=== PATIENT | female | born 2000 | race Two or more races ===

== ENCOUNTER 2024-08-24 13:38 | Outpatient (CLI) | payer MEDICAID, SELFPAY ==
--- NOTE | 2024-08-24 13:45 | CRLHL7_ITS ---
For Patients: As a result of the Century Cures Act, medical imaging exams and procedure reports are released immediately into your electronic medical record. You may view this report before your referring provider. If you have questions, please contact your health care provider. OBSTETRICAL ULTRASOUND TRANSABDOMINAL, 08/24/2024 CLINICAL INDICATION: Viability. Surgery: No LMP: March 2024 Previous ultrasound: Outside per patient. PRICILA by ultrasound: 03/01/2025 Gestational age: 13 weeks 0 days TECHNIQUE: Real-time hunter-scale imaging of the fetus was performed transabdominal. FINDINGS: CRL: 7.3 cm, 13 weeks 3 days; PRICILA 02/26/2025 heart rate: 155 BPM Gestational sac: 6.3 cm, appears within normal limits Yolk sac: Not visualized Right ovary: Not visualized Left ovary: Within normal limits; 4.4 x 1.8 x 3.0 cm, CL IMPRESSION: Single living intrauterine measuring 13 weeks 3 days with sonographic due date of 02/26/2025. ROD BELLO M.D. Diagnostic Radiologist [email or web address] Transcribed: 5:[address]/Dictated by: Rod Bello MD @ 08/24/2024 5:02:00 PM (Electronically Signed)
--- OUTSIDE RECORDS SUMMARY | 2024-08-24 13:48 | XMS_ITS | Clinical Summary ---
Author Organization [facility] Address [facility] [place] [address] Care Team Providers Care Flumer Name Role Phone None Primary Care Provider Unavailabl e Allergies No known active allergies Medications vit A-vit K-lbqxwy-vvfb- copper (Dsly-Pyoa-Ari l(vit A,C-biotin)) 2,500 unit-100 mg-2,500 mcg cap Take 1 Capsule by mouth once daily. 5 Active fluconazole (Diflucan) 150 mg tabletIndicati ons:Yeast vaginitis ONE BY MOUTH THIS EVENING AND MAY REPEAT IN 5 DAYS IF NEEDED 2 Tablet 5 Active 25/iron fum/folic/dha (-1 ORAL) Take by mouth. Activ e clotrimazole 1% vaginal creamIndicatio ns:Vaginal itching,Vagina l discharge Insert 1 Applicatorful into the vagina at bedtime for 7 days. 45 g 5 025 Active Problems Problem Noted Date Diagnosed Date care, subsequent in first [facility] 07/06/2024 Cervical cancer screening 06/25/2024 Overview (06/25/2024): 05/2024 NIL Plan: HPV-based testing due 05/2027 Severe preeclampsia 04/10/2021 Estimated Date of Delivery Comme nts Yes 03/01/2025 Encounters Date Type Department Care Team Description 08/07/2024 5:19 PM CDT - 08/07/2024 6:35 PM CDT Emergency [facility] [address] [place] [address] Trista Quigley PA Vaginal itching (Primary Dx); Vaginal discharge Discharge Disposition: Home Self Care 08/07/2024 Travel 07/21/2024 Telephone [facility] [address] [place] [address] Tiara Baptiste MD Imaging 07/13/2024 1:32 PM CDT - 07/13/2024 4:27 PM CDT Emergency [facility] [address] [place] [address] Trista Quigley PA Vaginal bleeding in (HC) (Primary Dx); Abdominal cramping; Subchorionic hematoma in first trimester, single or unspecified fetus (HC) Discharge Disposition: Home Self Care 07/13/2024 Travel 07/13/2024 Nurse Triage [facility] Centralized Nurse Triage None Abdominal Pain 07/09/2024 12:04 PM CDT - 07/09/2024 11:59 PM CDT Hospital Encounter [facility] [address] [place] [address] Bleeding in early (HC) 07/09/2024 Telephone [facility] [address] [place] [address] Tiara Baptiste MD Results (LABS /) 07/09/2024 Travel 07/09/2024 Telephone [facility] [address] [place] [address] Tiara Baptiste MD Appointment 07/08/2024 Nurse Triage [facility] [address] [place] [address] Tiara Baptiste MD Vaginal Problem () 07/06/2024 10:30 AM CDT Phone OB Encounter [facility] [address] [place] [address] Education (PRICILA 03/01/25/) 07/06/2024 Travel 07/01/2024 8:00 PM CDT - 07/02/2024 12:15 AM CDT Emergency [facility] [address] [place] [address] Abby Baker DO Fuechtmann, Kayla Renee, PA Shortness of breath (Primary Dx); , unspecified gestational age (HC); Abdominal pain, unspecified abdominal location; Constipation, unspecified constipation type Discharge Disposition: Home Self Care 07/01/2024 7:45 PM CDT Office Visit [facility] [address] [place] [address] Abdominal Pain 07/01/2024 Travel 06/11/2024 Patient Outreach [facility] Care Management - Care Management Navigation/[facility] [place] [address] Adina Gavin-Community Resource Navigation 06/09/2024 9:35 AM CDT Office Visit [facility] [address] [place] [address] Adamaris Gabriel NP Vaginal Discharge (Having discharge since yesterday and having itchiness and burning in the area ) 06/09/2024 Travel 06/09/2024 Nurse Triage [facility] Centralized Nurse Triage None Vaginal Problem from Last 3 Months Immunizations Immunization Administration Dates Next Due DTaP 12/06/2004,12/05/2002 HPV 9 (Gardasil 9) 12/12/2015,04/04/2015, 015 Hepatitis A (Peds) 12/12/2015,01/31/2015 Hepatitis B (Peds) 06/01/2001,04/04/2001, 001 Inactivated Polio Vaccine 08/04/2005,,06/01/2001,04/04,01/31/2001,2000 Influenza, IIV3 (Age >=3 years) 12/21/2020 Influenza, IIV4 12/05/2020,12/29/2019,12/12/2015 Influenza,LAIV4 Live Intrana monisha (Flumist) 01/31/2015 MMR 12/09/2006,2001 Meningococcal Vaccine (Menactra) 01/31/2015 Tdap 01/17/2021,01/31/2015 Varicella Vaccine 04/04/2015,01/31/2015 Family History Medical History Relation Name Comments No Known Problems Daughter Diabetes type II Father Hyperlipidemia Father Hypertension Father Hypertension Mother Relation Name Status Comments Daughter Alive Father Alive Mother Alive Social History Tobacco Use Types Packs/Day Years Used Date Smoking Tobacco: Never Passive Smoke Exposure: Never Smokeless Tobacco: Never Tobacco Cessation:Counseling Given: Not Answered Alcohol Use Standard Drinks/Week Comments Not Currently 0 (1 standard drink = 0.6 oz pur e alcohol) PHQ-2 Answer Date Recorded PHQ-2 TOTAL SCORE 0 07/24/2022 Social Connections Answer Date Recorded Do you often feel lonely or isolated from those around you? 0 06/09/2024 Financial Resource Strain Answer Date R ecorded Difficulty of Paying Living Expenses 2 06/09/2024 Difficulty of Paying Living Expenses 1 06/09/2024 Food Insecurity Answer Date Recorded Do you worry your food will run out before you are able to buy more? 1 06/09/2024 Transportation Needs Answer Date Record ed Does lack of transportation keep you from medica l appointments? 1 06/09/2024 Does lack of transportation keep you from work, meetings or getting things that you need? 1 06/09/2024 Housing Stability Answer Date Recorded What is your housing situation today? 1 06/09/2024 Interpersonal Safety Answer Date Record ed Are you being hit, kicked, p ushed or yelled at (see row info)? No 08/07/2024 Interpersonal Safety Abuse 12 - 18 Not on file 08/07/2024 Interpersonal Safety Ambulatory Vulnerability No t on file 08/07/2024 Utilities Answer Date Recorded Do you have trouble paying f or utilities (for example, heat, electricity, water, phone)? 1 06/09/2024 Estimated Date of Delivery Comme nts Yes 03/01/2025 Sex and Gender Information Value Date Recorded Sex Assigned at Not on file Legal Sex Female 4:02 PM CDT Gender Identity Not on file Sexual Orientation Not on file Obstetrics History Para Term AB IAB SAB Ectopic Multiple Livin g Live Births 2 1 1 0 1 1 Date Outcome GA Total Labor Labor/2nd/3rd Weight Sex Type Anes PTL Alysa A1 A5 Name Clin 2021 Term 39w 6d 0h 02m 0h 02m 3 kg (6 lb 9.8 oz) F C-Sec tion Epidu ral,G enera l Livin g 9 9 BG JAEM LATIF Kristi na Joy, MD Complications:Prolonged late nt phase Delivery Location:Hospital ( [facility] Current Summary Episode Dates Number of Fetuses Estimated Date of Delivery 07/06/2024 - Present (08/24/2024) 1 03/01/2025 (set by Jessica Bullard, RN on 07/06/2024 based on Alternate PRICILA Entry) Dating Summary Based On PRICILA GA Diff Last Menstrual Period on 04/07/2024 (Approximate ) 01/12/2025 +6w6d Alternate PRICILA Entry 03/01/2025 Working Overview and Plan :[place] Delivery Plans Planned delivery method: Vitals Pregravid Weight Height TWG (As of 08/24/2024) Pregrav id BMI 1.6 m (5' 3) Date GA Fund Present FHR Mvmt BP Weight Edema Alb Glu Ket Dil/ Eff/Sta 5 6w3d Inpatient data not displayed here. See encounter summary. 5 7w0d Inpatient data not displayed here. See encounter summary. 5 10w4d Inpatient data not displayed here. See encounter summary. Notes Progress Notes - Phone OB En counter - 07/06/2024 - GA:6w0d 07/06/2024 - 6w0d - Rafa Bullard, RN OB Education. This is her 2 . Her significant other Jitendra is involved. HPI: Currently she is feeling Good, no concerns. Was seen in the ER for SOB, constipation and abdominal pain. Patient was encouraged to start taking colace daily to help with the constipation. Mood:Feels great. counseled, information provided, and discussed Past Medical History: . Date Hx of preeclampsia, prior , currently (HC) Known health problems: none OB History Para Term Living 2 1 1 1 Multiple Live Births 0 1 Patient Active Problem List Diagnosis Code Severe preeclampsia (HC) O14.10 Cervical cancer screening Z12.4 Current Outpatient Rx Medication Sig Dispense Refill fluconazole (Diflucan) 150 mg tablet ONE BY MOUTH THIS EVENING AND MAY REPEAT IN 5 DAYS IF NEEDED 2 Tablet 0 25/iron fum/folic/dha (-1 ORAL) Take by mouth. vit A-vit F-iuiyrp-yhyx-copper (Lzhg-Euzx-Bdlj(vit A,C-biotin)) 2,500 unit-100 mg-2,500 mcg cap Take 1 Capsule by mouth once daily. Medications have been reviewed by me and are current to the best of my knowledge and ability. Discussed about the following topics, patient will receive information at initial OB visit: Nutrition: counseled, information provided, and discussed -Usual weight gain: 25-35 for women starting with normal weight. Current BMI: 36 25 to 29.9: 15-25 lbs 30 or more: 11-20 lbs Physical Activity: counseled, information provided, and discussed Current activity: walking daily. Genetic testing: Would be interested in genetic testing. Calcium intake is adequate. women need 1,200 mg daily. A serving of food rich in calcium has 250 to 350 mg of calcium. (Examples include 8 oz of milk or fortified juice, 6 to 8 oz of yogurt. Three servings of calcium-rich food and your vitamin typically equal 1,200 mg daily. She does not take supplements. Caffeine: counseled, information provided, and discussed Limit caffeine each day to 200 mg. Coffee at coffee shops generally contain more caffeine, so be mindful of that. Sugar substitute:counseled, information provided, and discussed Fish:counseled, information provided, and discussed Eat only cooked fish- Parasites and bacteria in uncooked fish, such as sushi, can cause illness. Avoid smoked fish due to concerns about listeria. Lunch meats:counseled, information provided, and discussed Listeria-type of bacteria found in soil and water. Listeria can be found in raw meats and vegetables, foods that become contaminated after processing and raw or unpasteurized milk. Avoid foods high in calories from sugar and fat. Iron/protein intake Fluids: Drink 8 to 10 glasses of liquids each day. Increase if the weather is hot. Meds, Herbs, Vitamins: counseled, information provided, and discussed Given list of over the counter medication that could be used in at the approval of the OB provider. Was safe medication list sent through [employer] : does not currently have mychart set up. Sent patient a text to help set up her mychart. Sleep: adequate Alcohol/Chemical Use: none She does not smoke, and has not smoked in the past. Quit smoking: none Screened for Domestic Abuse: none Toxoplasmosis Precaution: counseled, information provided, and discussed Exposure to cats: No exposure Avoidance of sauna/hot tubs emphasized. What to expect during visits Bring a list of questions you have for the provider. -Initial Ultrasound between 8-10 weeks -Anatomy ultrasound 18-20 weeks. Frequency of visits: -Monthly until 28 weeks then biweekly until 36 weeks, then weekly until 40 weeks unless problems. -Reviewed Bloodwork to be done at first OB: CBC, Hepatitis B, HIV, RPR, Gonorrhea, Chlamydia, UA, URINE CULTURE, Drug screen, TSH, Blood type. RPR testing also done at 28 weeks and delivery. -RPR at 28 weeks and after delivery. Tdap shot at end of - Need for Rhogam shots based on blood typing done with labwork today. Rhogam shots at 28 weeks and 12 weeks later if still for Rh - mothers. Another Rhogam within 72 hours of delivery if baby Rh positive. Discussed resources available, nurses, OB MD, lacatation safety and health consultant and Babystop class. Advised to check on breastpumps with insurance. Informed patient how to contact the triage nurse or the labor and delivery floor if experiencing any symptoms listed below. Warning signs: vaginal bleeding, fluid leaking from your vagina, severe abdominal pain, nausea/vomiting more than 4-5 times a day or if not able to keep anything down, fever more than 100.4, problems with urination and headache that doesn't go away with tylenol. Questions the patient has: no questions. A/P: OB Education. OB labs and US are ordered. She is not in need of a prescription for vitamins and she has her next OB visit scheduled with Dr. Baptiste on 07/23/24 . 40 minutes spent with patient and greater than 50% was spent on counseling. Jessica Bullard RN .................... 07/06/2024 10:45 AM Last Filed Vital Signs Vital Sign Reading Time Taken Comments Blood Pressure 117/76 08/07/2024 6:33 PM CDT Pulse 87 08/07/2024 6:33 PM CDT Temperature 36.8 C (98.3 F) 08/07/2024 5:00 PM CDT Respiratory Rate 18 08/07/2024 5:00 PM CDT Oxygen Saturation 97% 08/07/2024 6:33 PM CDT Inhaled Oxygen Concentration - - Weight 83 kg (183 lb) 08/07/2024 5:00 PM CDT Height 160 cm (5' 3) 08/07/2024 5:00 PM CDT Body Mass Index 32.42 08/07/2024 5:00 PM CDT Plan of Treatment Upcoming Encounters Date Type Department Care Team (Late st Contact Info) Description 09/01/2024 7:30 AM CDT OB Encounter [facility] [address] [place] [address] Brigitte Andrew MD [address] [place] [address] Health Maintenance Due Date Last Done Comments Depression screening for age 12+ 07/25/2023 07/24/2022, 05/04/2021, 04/10/2021 COVID-19 vaccine series ( season) 2023 02/07/2021, 06/29/2020, 06/01/2020 Influenza Vaccine (Season Ended) 2024 12/21/2020, 12/05/2020, 12/29/2019, Additional history exists RSV vaccine for adults or (1 - Risk 1-dose series) 01/04/2025 BMI (ht and wt on same day) for age 18+ 05/18/2025 05/18/2024, 09/28/2021, 05/04/2021, Additional history exists Chlamydia for age 16-24 08/07/2025 08/08/19 25, 06/09/2024, 07/21/2023, Additional history exists Pap test for age 21-65 06/10/2027 06/09/2024 Tetanus booster 01/17/2031 01/17/2021, 01/31/2015 Hepatitis B series for 19+ Completed 06/01, 04/04/2001, 01/31/2001 HPV series for age 9-26 Completed 12/12/19 16, 04/04/2015, 01/31/2015 HIV for age 15-65 Addressed 08/31/2020 (Ve rified in Care Everywhere or Patient Record) Overridden with the intention of not completing the topic Hepatitis C screening for age 18-79 Addressed 08/31/2020 (Verified in Care Everywhere or Patient Record) Overridden with the intention of not completing the topic (IA) Tdap Completed 01/17/2021, 01/31/2015 Pneumococcal series for age 6-49 Aged Out No longer eligible b ased on patient's age to complete this topic Procedures Procedure Name Priority Date/Time Associated Diagnosis Comments GC CHLAMYDIA TRACH PROBE STAT 08/07/2024 6:31 PM CDT TRICHOMONAS, ADRIANA, AND BACTERIAL VAGINOSIS BY BARRETT STAT 08/07/2024 6:31 PM CDT US OB 1ST TRI SINGLE TA AND TV STAT 07/13/2024 3:28 PM CDT URINE STAT 07/13/2024 3:05 PM CDT UA W/ SEDIMENT EXAM REFLEXED PER CRITERIA STAT 07/13/2024 3:05 PM CDT EXTRA TUBE PEREIRA Today 07/13/2024 2:41 PM CDT CBC WITH AUTO DIFFERENTIAL STAT 07/13/2024 2:41 PM CDT HCG BETA QUANT, STAT 07/13/2024 2:41 PM CDT BASIC METABOLIC PANEL STAT 07/13/2024 2:41 PM CDT CBC WITH AUTO DIFFERENTIAL STAT 07/13/2024 2:41 PM CDT HCG BETA QUANT, STAT 07/09/2024 12:18 PM CDT Bleeding in early (HC) US OB 1ST TRI SINGLE TA AND TV STAT 07/01/2024 10:28 PM CDT INFLUENZA A/B PCR STAT 07/01/2024 8:4 4 PM CDT COVID-19 MOLECULAR Today 07/01/2024 8: 44 PM CDT XR CHEST 2 VIEWS PA AND LATERAL STAT 07/01/2024 8:42 PM CDT LIPASE STAT 07/01/2024 8:34 PM CDT HEPATIC FUNCTION PANEL STAT 07/01/2024 8:34 PM CDT BASIC METABOLIC PANEL STAT 07/01/2024 8:34 PM CDT CBC W PLT NO DIFF STAT 07/01/2024 8:3 4 PM CDT HCG BETA QUANT, STAT 07/01/2024 8:34 PM CDT URINE STAT 07/01/2024 8:12 PM CDT UA W/ SEDIMENT EXAM REFLEXED PER CRITERIA STAT 07/01/2024 8:12 PM CDT MIRROR MAKER THIN PREP PAP SCREEN IMAGED Routine 06/09/2024 1:18 PM CDT Pap smear for cervical cancer screening GC CHLAMYDIA TRACH PROBE Routine 06/09/2024 1:18 PM CDT Vaginal discharge TRICHOMONAS, ADRIANA, AND BACTERIAL VAGINOSIS BY BARRETT Routine 06/09/2024 1:18 PM CDT Vaginal discharge TSH Routine 06/09/2024 11:23 AM CDT Amenorrhea PROLACTIN Routine 06/09/2024 11:23 AM CDT Amenorrhea FSH Routine 06/09/2024 11:23 AM CDT Amenorrhea from Last 3 Months Results * (ABNORMAL) TRICHOMONAS, ADRIANA, AND BACTERIAL VAGINOSIS BY BARRETT (08/07/2024 6:31 PM CDT) Only the most recent of2 resultswithin the time period is included. ADRIANA SPECIES Positive(A) Negative 08/10/19 25 1:47 AM CDT [facility] ADRIANA GLABRATA Negative Negative 08/09/2024 1:47 AM CDT [facility] TRICHOMONAS VVA Negative Negative 5 1:47 AM CDT [facility] BACTERIAL VAGINOSIS Negative Negative 08/09/2024 1:47 AM CDT [facility] Other VAGINAL SWAB / Unknown Non-Blood / Unknown 08/07/2024 6:31 PM CDT 08/07/2024 6:41 PM CDT us Trista VARNER MICROBIOLOGY Final R esult [facility] [address] [place] [address], * GC CHLAMYDIA TRACH PROBE (08/07/2024 6:31 PM CDT) Only the most recent of2 resultswithin the time period is included. CHLAMYDIA PROBE Negative 6:45 PM CDT [facility] N GONORRHOEAE PROBE Negative 08/08/2024 6:45 PM CDT [facility] Other VAGINAL SWAB / Unknown Non-Blood / Unknown 08/07/2024 6:31 PM CDT 08/07/2024 6:41 PM CDT us Trista VARNER MICROBIOLOGY Final R esult [facility] [address] [place] [address], [place] * US OB 1ST TRI SINGLE TA AND TV (07/13/2024 3:28 PM CDT) Only the most recent of2 resultswithin the time period is included. Anatomical Region Laterality Modality Ultrasound 07/13/2024 3:49 PM CDT Impressions 07/13/2024 3:49 PM CDT 1. Single living intrauterine with normal heart rate measuring 130 beats per minute and estimated gestational age of 6 weeks and 5 days with estimated delivery date of 03/03/2025. 2. Suspected small subchorionic hemorrhage measuring approximately 1.6 centimeters in greatest dimension. 3. Trace free fluid, likely physiologic. Dictated by Ignacio Elizondo MD @ 07/13/2024 3:49:50 PM (Electronically Signed) Narrative 07/13/2024 3:49 PM CDT For Patients: As a result of the Cures Act, medical imaging exams and procedure reports are released immediately into your electronic medical record. You may view this report before your referring provider. If you have questions, please contact your health care provider. INDICATION: Abnormal bleeding COMPARISON: Obstetric ultrasound on July 01, 2024 TECHNIQUE: First trimester obstetric ultrasound, transabdominal and transvaginal approach utilizing grayscale and color Doppler FINDINGS: Single living intrauterine with crown-rump length measuring 0.7 centimeters consistent with a 6 week and 5 day gestation. heart rate is normal measuring 130 beats per minute. There is a normal appearing yolk sac. Suspected small perigestational hemorrhage measuring approximately 1.6 centimeters in greatest dimension. The uterus measures 10.7 x 6.7 x 5.6 cm and demonstrates overall normal echogenicity with hypoechoic region in the lower uterine segment, without significant internal flow on color Doppler, incompletely assessed on this exam. The cervix is normal. The right ovary measures 2.2 x 2.5 x 1.5 cm. Physiologic appearance without a dominant cystic lesion or solid ovarian / adnexal mass. The left ovary measures 3.0 x 3.2 x 1.8 cm. Physiologic appearance without a dominant cystic lesion or solid ovarian / adnexal mass. Trace free fluid, likely physiologic. Procedure Note Ignacio Elizondo MD - 07/13/2024 For Patients: As a result of the Cures Act, medical imagingexams and procedure reports are released immediately into your electronicmedical record. You may view this report before your referring provider.If you have questions, please contact your health care provider. INDICATION: Abnormal bleeding COMPARISON: Obstetric ultrasound on July 01, 2024 TECHNIQUE: First trimester obstetric ultrasound, transabdominal and transvaginalapproach utilizing grayscale and color Doppler FINDINGS: Single living intrauterine with crown-rump lengthmeasuring 0.7 centimeters consistent with a 6 week and 5 day gestation. heart rate is normal measuring 130 beats per minute. There is anormal appearing yolk sac. Suspected small perigestational hemorrhage measuring approximately 1.6centimeters in greatest dimension. The uterus measures 10.7 x 6.7 x 5.6 cm and demonstrates overall normalechogenicity with hypoechoic region in the lower uterine segment, withoutsignificant internal flow on color Doppler, incompletely assessed on thisexam. The cervix is normal. The right ovary measures 2.2 x 2.5 x 1.5 cm. Physiologic appearancewithout a dominant cystic lesion or solid ovarian / adnexal mass. The left ovary measures 3.0 x 3.2 x 1.8 cm. Physiologic appearance withouta dominant cystic lesion or solid ovarian / adnexal mass. Trace free fluid, likely physiologic. IMPRESSION: 1. Single living intrauterine with normal heart ratemeasuring 130 beats per minute and estimated gestational age of 6 weeksand 5 days with estimated delivery date of 03/03/2025. 2. Suspected small subchorionic hemorrhage measuring approximately 1.6centimeters in greatest dimension. 3. Trace free fluid, likely physiologic. Dictated by Ignacio Elizondo MD @ 07/13/2024 3:49:50 PM (Electronically Signed) us Trista VARNER US Final R esult * UA W/ SEDIMENT EXAM REFLEXED PER CRITERIA (07/13/2024 3:05 PM CDT) Only the most recent of2 resultswithin the time period is included. COLOR Yellow Yellow Color 07/13/2024 3:24 PM [facility] CLARITY Clear Clear Clarity 07/13/2024 3:24 PM [facility] SPECIFIC GRAVITY,URINE 1.010 1.010, 1.015, 1.020, 1.025 07/13/2024 3:24 PM [facility] PH,URINE 6.0 6.0, 7.0, 8.0, 5.5, 6.5, 7.5, 8.5 07/13/2024 3:24 PM [facility] UROBILINOGEN, QUALITATIVE Normal Normal EU/dl 07/13/2024 3:24 PM [facility] PROTEIN, URINE Negative Negative mg/dL 07/13/2024 3:24 PM [facility] GLUCOSE, URINE Negative Negative mg/dL 07/13/2024 3:24 PM [facility] KETONES,URINE Negative Negative mg/dL 07/13/2024 3:24 PM [facility] BILIRUBIN,URI NE Negative Negative 07/13/2024 3:24 PM [facility] OCCULT BLOOD,URINE Negative Negative 07/13/2024 3:24 PM [facility] NITRITE Negative Negative 07/13/2024 3:24 PM [facility] LEUKOCYTE ESTERASE Negative Negative 07/13/2024 3:24 PM [facility] Urine URINE SPECIMEN / Unknown Non-Blood / Unknown 07/13/2024 3:05 PM CDT 07/13/2024 3:09 PM T us Trista VARNER URINE Final R esult [facility] [address] [place] [address] * (ABNORMAL) URINE (07/13/2024 3:05 PM CDT) Only the most recent of2 resultswithin the time period is included. ,URIN E Positive(P ositive) Negative 07/13/2024 3:25 PM T [facility] Comment:Is Rh typing necessa ry? Urine URINE SPECIMEN / Unknown Non-Blood / Unknown 07/13/2024 3:05 PM CDT 07/13/2024 3:09 PM CDT us Trista Quigley PA URINE Final R esult [facility] [address] [place] [address] * (ABNORMAL) CBC WITH AUTO DIFFERENTIAL (07/13/2024 2:41 PM CDT) Pathologist [facility] WHITE BLOOD COUNT 10.7 4.5 - 11.0 thou/cu mm 07/13/2024 3:03 PM [facility] RED BLOOD COUNT 4.58 4.00 - 5.20 mil/cu mm 07/13/2024 3:03 PM [facility] HEMOGLOBIN 13.4 12.0 - 16.0 g/dL 07/13/2024 3:03 PM [facility] HEMATOCRIT 39.9 33.0 - 51.0 % 07/13/2024 3:03 PM [facility] MCV 87 80 - 100 fL 07/13/2024 3:03 PM [facility] MCH 29.3 26.0 - 34.0 pg 07/13/2024 3:03 PM [facility] MCHC 33.6 32.0 - 36.0 g/dL 07/13/2024 3:03 PM [facility] RDW 13.1 11.5 - 15.5 % 07/13/2024 3:03 PM [facility] PLATELET COUNT 300 140 - 440 thou/cu mm 07/13/2024 3:03 PM [facility] MPV 10.4 6.5 - 11.0 fL 07/13/2024 3:03 PM [facility] [facility] % NEUT 71.3 % 07/13/2024 3:03 PM [facility] % LYMPH 21.0 % 07/13/2024 3:03 PM [facility] % MONO 6.4 % 07/13/2024 3:03 PM [facility] % EOS 1.1 % 07/13/2024 3:03 PM [facility] % BASO 0.2 % 07/13/2024 3:03 PM [facility] ABSOLUTE NEUTROPHILS 7.6(H) 1.7 - 7.0 thou/cu mm 07/13/2024 3:03 PM [facility] ABSOLUTE LYMPHOCYTES 2.3 0.9 - 2.9 thou/cu mm 07/13/2024 3:03 PM [facility] ABSOLUTE MONOCYTES 0.7 <0.9 thou/cu mm 07/13/2024 3:03 PM [facility] ABSOLUTE EOSINOPHILS 0.1 <0.5 thou/cu mm 07/13/2024 3:03 PM [facility] ABSOLUTE BASOPHILS 0.0 <0.3 thou/cu mm 07/13/2024 3:03 PM [facility] Blood BLOOD SPECIMEN / Unknown Venipuncture / Unknown 07/13/2024 2:41 PM CDT 07/13/2024 2:48 PM CDT us Trista VARNER HEMATOLOGY Final R esult [facility] [address] [place] [address] * EXTRA TUBE PEREIRA (07/13/2024 2:41 PM CDT) Blood BLOOD SPECIMEN / Unknown Extra Tube / Unknown 07/13/2024 2:41 PM CDT 07/13/2024 3:13 PM CDT us Doctor Unknown LABORATORY Final Result [facility] [address] [facility] [place] [address] * HCG BETA QUANT, (07/13/2024 2:41 PM CDT) Only the most recent of3 resultswithin the time period is included. HCG BETA QUANT,PREGNANC Y 42,474 mIU/mL 07/13/2024 3:41 PM CDT [facility] Blood BLOOD SPECIMEN / Unknown Venipuncture / Unknown 07/13/2024 2:41 PM CDT 07/13/2024 2:48 PM CDT [facility] LABORATORY - 07/13/2024 3:41 PM CDT Expected Value for Healthy Non- premenopausal women <5.3mIU/mL FOR GESTATIONAL ASSESSMENT-See Range Table Below Weeks of gestation hCG mIU/mL 3 weeks gestation (5.8 - 71.2) 4 weeks gestation (9.5 - 750) 5 weeks gestation (217 - 7138) 6 weeks gestation (158 - 31,795) 7 weeks gestation (3,697 - 163,563) 8 weeks gestation (32,065 - 149,571) 9 weeks gestation (63,803 - 151,410) 10 weeks gestation (46,509 - 186,977) 12 weeks gestation (27,832 - 210,612) 14 weeks gestation (13,950 - 62,530) 15 weeks gestation (12,039 - 70,971) 16 weeks gestation (9,040 - 56,451) 17 weeks gestation (8,175 - 55,868) 18 weeks gestation (8,099 - 58,176) Biotin supplements may cause clinically significant interference for this test assay. If interference is suspected, it is strongly recommended that biotin is discontinued for at least one week prior to retesting. us Trista VARNER CHEMISTRY Final R esult [facility] [address] [facility] [place] [address] * (ABNORMAL) BASIC METABOLIC PANEL (07/13/2024 2:41 PM CDT) Only the most recent of2 resultswithin the time period is included. SODIUM 135(L) 136 - 145 mmol/L 07/13/2024 3:11 PM [facility] POTASSIUM 3.8 3.5 - 5.1 mmol/L 07/13/2024 3:11 PM [facility] CHLORIDE 101 98 - 107 mmol/L 07/13/2024 3:11 PM [facility] CO2,TOTAL 24 22 - 29 mmol/L 07/13/2024 3:11 PM [facility] ANION GAP 10 5 - 18 07/13/2024 3:11 PM [facility] GLUCOSE 74 70 - 99 mg/dL 07/13/2024 3:11 PM [facility] CALCIUM 8.8 8.8 - 10.4 mg/dL 07/13/2024 3:11 PM [facility] Comment: Reference ranges for this test were updated on 12/30/2023 to reflect our healthy population more accurately. Reference range changes are not retroactively applied to results, but previous results using the same methodology can be interpreted in the context of the new reference range. BUN 5(L) 6 - 20 mg/dL 07/13/2024 3:11 PM [facility] CREATININE 0.51 0.50 - 0.90 mg/dL 07/13/2024 3:11 PM [facility] BUN/CREAT RATIO 10 10 - 20 3:11 PM [facility] eGFR >90 >90 mL/min/1. 73m2 07/13/2024 3:11 PM [facility] Comment:As of 2021, eG FR is calculated by the CKD-EPI creatinine equation without race adjustment. eGFR can be influenced by muscle mass, exercise, and diet. The reported eGFR is an estimation only and is only applicable if the renal function is stable. Blood BLOOD SPECIMEN / Unknown Venipuncture / Unknown 07/13/2024 2:41 PM CDT 07/13/2024 2:49 PM CDT Trista VARNER CHEMISTRY Final R esult Performing Organization Address City/[facility]/ZIP Co de Phone Number [facility] [address] [place] [address] * COVID-19 MOLECULAR (07/01/2024 8:44 PM CDT) [facility] COVID 19 [place] MOLECULAR Not detected Not detected 07/01/2024 9:12 PM CDT [facility] TESTING LABORATORY [facility] 07/01/2024 9:12 PM CDT [facility] Comment:Specimen submitted t o [facility] for testing. Other SPECIMEN FROM NASOPHARYNGEAL STRUCTURE / Unknown Non-Blood / Unknown 07/01/2024 8:44 PM CDT 07/01/2024 8:48 PM CDT Abby Moyer DO MICROBIOLOGY Final Result Performing Organization Address City/[facility]/ZIP Co de Phone Number [facility] [address] [place] [address] * INFLUENZA A/B PCR (07/01/2024 8:44 PM CDT) [facility] INFLUENZA A PCR NOT Detected 07/01/2024 9:12 PM CDT [facility] INFLUENZA B PCR NOT Detected 07/01/2024 9:12 PM CDT [facility] Other SPECIMEN FROM NASOPHARYNGEAL STRUCTURE / Unknown Non-Blood / Unknown 07/01/2024 8:44 PM CDT 07/01/2024 8:48 PM CDT Abby Falkutsteven DO MICROBIOLOGY Final Result Performing Organization Address [facility]/ZIP Co de Phone Number [facility] [address] [place] [address] * XR CHEST 2 VIEWS PA AND LATERAL (07/01/2024 8:42 PM CDT) Anatomical Region Laterality Modality CHEST, THORAX, Lung, HEART Digit al Radiography 07/01/2024 9:02 PM CDT Impressions 07/01/2024 9:02 PM CDT 1. No acute cardiopulmonary disease is seen. Dictated by: Nikhil Jimenes MD @ 07/01/2024 21:02:50 (Electronically Signed) Narrative 07/01/2024 9:02 PM CDT For Patients: As a result of the Cures Act, medical imaging exams and procedure reports are released immediately into your electronic medical record. You may view this report before your referring provider. If you have questions, please contact your health care provider. INDICATION: Shortness of breath TECHNIQUE: Chest radiograph 2 views COMPARISON: 12/31/2022 FINDINGS: The sensitivity and specificity of the exam are moderately limited by the patient`s body habitus. Mediastinum: The mediastinum is normal in appearance. The heart silhouette is normal in size and morphology. Lung: Both lungs are unremarkable in appearance. No sign of pleural effusion seen. No pneumothorax is identified. Bone and Soft tissue: Unremarkable for age. Procedure Note Nikhil Jimenes MD - 07/01/2024 For Patients: As a result of the Cures Act, medical imagingexams and procedure reports are released immediately into your electronicmedical record. You may view this report before your referring provider.If you have questions, please contact your health care provider. INDICATION: Shortness of breath TECHNIQUE: Chest radiograph 2 views COMPARISON: 12/31/2022 FINDINGS: The sensitivity and specificity of the exam are moderatelylimited by the patient`s body habitus. Mediastinum: The mediastinum is normal in appearance. The heart silhouetteis normal in size and morphology. Lung: Both lungs are unremarkable in appearance. No sign of pleuraleffusion seen. No pneumothorax is identified. Bone and Soft tissue: Unremarkable for age. IMPRESSION: 1. No acute cardiopulmonary disease is seen. Dictated by: Nikhil Jimenes MD @ 07/01/2024 21:02:50 (Electronically Signed) Abby Clarke Plutsteven DO GENERAL IMAGI NG Final Result * (ABNORMAL) CBC W PLT NO DIFF (07/01/2024 8:34 PM CDT) WHITE BLOOD COUNT 11.6(H) 4.5 - 11.0 thou/cu mm 07/01/2024 8:41 PM CDT [facility] RED BLOOD COUNT 4.27 4.00 - 5.20 mil/cu mm 07/01/2024 8:41 PM CDT [facility] HEMOGLOBIN 12.3 12.0 - 16.0 g/dL 07/01/2024 8:41 PM CDT [facility] HEMATOCRIT 37.2 33.0 - 51.0 % 07/01/2024 8:41 PM T [facility] MCV 87 80 - 100 fL 07/01/2024 8:41 PM CDT [facility] MCH 28.8 26.0 - 34.0 pg 07/01/2024 8:41 PM T [facility] MCHC 33.1 32.0 - 36.0 g/dL 07/01/2024 8:41 PM T [facility] RDW 13.4 11.5 - 15.5 % 07/01/2024 8:41 PM T [facility] PLATELET COUNT 297 140 - 440 thou/cu mm 07/01/2024 8:41 PM T [facility] MPV 9.9 6.5 - 11.0 fL 07/01/2024 8:41 PM T [facility] Blood BLOOD SPECIMEN / Unknown Venipuncture / Unknown 07/01/2024 8:34 PM CDT 07/01/2024 8:38 PM CDT us Abby Falkutt DO HEMATOLOGY Final Result [facility] [address] [place] [address] * LIPASE (07/01/2024 8:34 PM CDT) LIPASE 19.9 13.0 - 60.0 IU/L 07/01/2024 9:02 PM CDT [facility] Blood BLOOD SPECIMEN / Unknown Venipuncture / Unknown 07/01/2024 8:34 PM CDT 07/01/2024 8:38 PM CDT Abby Clarke Plutt DO CHEMISTRY Final Result [facility] [address] [place] [address] * (ABNORMAL) HEPATIC FUNCTION PANEL (07/01/2024 8:34 PM CDT) ALBUMIN 4.2 4.0 - 4.9 g/dL 07/01/2024 9:02 PM [facility] PROTEIN,TOTAL 6.7 6.0 - 8.0 g/dL 07/01/2024 9:02 PM [facility] BILIRUBIN,TOTAL 0.2 0.0 - 1.2 mg/dL 07/01/2024 9:02 PM [facility] BILIRUBIN,DIRECT 0.1 0.0 - 0.2 mg/dL 07/01/2024 9:02 PM [facility] BILIRUBIN,INDIRE CT 0.1(L) 0.2 - 0.8 mg/dL 07/01/2024 9:02 PM [facility] ALK PHOSPHATASE 73 35 - 104 IU/L 07/01/2024 9:02 PM [facility] ALT (SGPT) 16 10 - 35 IU/L 07/01/2024 9:02 PM [facility] AST (SGOT) 18 10 - 35 IU/L 07/01/2024 9:02 PM [facility] Blood BLOOD SPECIMEN / Unknown Venipuncture / Unknown 07/01/2024 8:34 PM CDT 07/01/2024 8:38 PM CDT Abby Clarke Plutt DO CHEMISTRY Final Result Performing Organization Address City/[facility]/ZIP Co de Phone Number [facility] [address] [place] [address] * MIR[employer] THIN PREP PAP SCREEN IMAGED (06/09/2024 1:18 PM CDT) Case Report Gynecologic Cytology Report Case: [id number] Authorizing Provider: Adamaris Gabriel NP Collected: 06/09/2024 1318 [facility] Received: 06/09/2024 1318 Clinic First Screen: [place] Stahl Specimen: MIR[employer]OR [employer] ThinPrep Vial Screening, Cervical 06/25/2024 10:45 AM CDT [facility] INTERPRETATION/ RESULT NEGATIVE FOR INTRAEPITHELIAL LESION OR MALIGNANCY (NIL) (none) 06/25/2024 10:45 AM CDT [facility] at 1045 CDT ORGANISM(S) Fungal organisms morphologically consistent with Adriana species 06/25/2024 10:45 AM CDT [facility] SPECIMEN ADEQUACY Satisfactory for evaluation Endocervical component present 06/25/2024 10:45 AM CDT [facility] Date of LMP 06/01/2024 06/25/2024 10:45 AM CDT [facility] Last Pap Date none 06/25/2024 10:45 AM CDT [facility] Last Pap Result First Pap/Unknown 10:45 AM CDT [facility] Abnormal Pap or [place] Bx in last 5 years No 06/25/2024 10:45 AM CDT [facility] Menstrual Status Regular Periods 06/25/2024 10:45 AM CDT [facility] [place] Bx Done Today No 06/25/2024 10:45 AM CDT [facility] Additional Information None given 06/25/2024 10:45 AM CDT [facility] Comment: Cytology is screened at [facility], Central Laboratory - [address], [place] [address] and [facility] - [address] [place] [address] [address] [facility] - [address] [place] [address] Interpreted at [facility], Central Laboratory - [address] [facility] [address] [facility] [address], [place] [address] Automated Review Successful 06/25/2024 10:45 AM CDT [facility] Comment:Specimen processed s uccessfully by automated mica patcher device, ThinPrep Imaging System, [employer] Note The pap test is a screening technique, not a diagnostic procedure. It is used primarily to screen for squamous cancers and precursor lesions. Published studies have shown that it is subject to both false negative and false positive results. The pap test should not be used as the sole means to diagnose or exclude pre-malignant and malignant lesions. 06/25/2024 10:45 AM CDT [facility]- ENTRCT LABORATORY Other (Cervical) Non-Blood / Unknown 06/09/2024 1:18 PM CDT 06/09/2024 1:18 PM CDT Adamaris Garbiel NP PATHOLOGY/CYTOLOGY Final Result [facility] [address] [place] [address], [place] * TSH (06/09/2024 11:23 AM CDT) TSH 1.20 mIU/L [facility] Dominic Comment: Reference Range > or = 20 Years 0.40-4.50 Ranges First trimester 0.26-2.66 Second trimester 0.55-2.73 Third trimester 0.43-2.91 Blood BLOOD SPECIMEN / Unknown 06/09/2024 11:23 AM CDT 06/09/2024 11:24 AM CDT Narrative [facility] - 06/10/2024 6:23 AM CDT FASTING:YES FASTING: YES Adamaris Gabriel NP CHEMISTRY Final Result [facility] [address] [address], [place] [phone] [facility] [address] [place] [address] * PROLACTIN (06/09/2024 11:23 AM CDT) PROLACTIN 8.5 ng/mL [facility] Comment: Reference Range Females Non- 3.0-30.0 10.0-209.0 Postmenopausal 2.0-20.0 Blood BLOOD SPECIMEN / Unknown 06/09/2024 11:23 AM CDT 06/09/2024 11:24 AM CDT Narrative [facility] - 06/10/2024 6:23 AM CDT FASTING:YES FASTING: YES us Adamaris Gabriel RESIDENTIAL CHILD CARE COUNSELOR SEND OUTS Final Result Performing Organization Address City/[facility]/ZIP Co de Phone Number [employer] [address] [address], [facility] [address] [place] [address] * FSH (06/09/2024 11:23 AM CDT) Pathologist [facility] FSH 6.0 mIU/mL [facility] Comment: Reference Range Follicular Phase 2.5-10.2 Mid-cycle Peak 3.1-17.7 Luteal Phase 1.5- 9.1 Postmenopausal 23.0-116.3 Blood BLOOD SPECIMEN / Unknown 06/09/2024 11:23 AM CDT 06/09/2024 11:24 AM CDT Narrative [facility] - 06/10/2024 6:23 AM CDT FASTING:YES FASTING: YES us Adamaris Gabriel NP CHEMISTRY Final Result [employer] [facility] [address] [place] [address], [facility] [address] [place] [address] from Last 3 Months Insurance MEDICAID [place] CARE Advance Directives * Full Code (Latest Code Status on File) Date Activated Date Inactivated Comments 04/02/2021 12:56 PM 04/06/2021 5:52 PM Question Answer Comments Code Status Discussion: Reviewed Preferences * Full Code Date Activated Date Inactivated Comments 04/02/2021 12:56 PM 04/02/2021 12:56 PM Question Answer Comments Code Status Discussion: Reviewed Preferences Care Teams Flumer Relationship Specialty Start Date End Date None . PCP - General 06/08/23
--- OUTSIDE RECORDS SUMMARY | 2024-08-25 00:47 | XMS_ITS | Clinical Summary ---
Author Organization [employer] [facility] Address [facility] [place] [address] Care Team Providers Care Ferry Terminal Supervisor Name Role Phone None Primary Care Provider Unavailabl e Allergies No known active allergies Medications vit A-vit R-ekpwdy-nxoi- copper (Kwxf-Jjsh-Ssp l(vit A,C-biotin)) 2,500 unit-100 mg-2,500 mcg cap [...] Date Diagnosed Date care, subsequent in first [facility] 07/06/2024 Cervical cancer screening 06/25/2024 Overview (06/25/2024): 05/2024 NIL Plan: HPV-based testing due 05/2027 Severe preeclampsia 04/10/2021 Estimated Date of Delivery Comme nts Yes 03/01/2025 Encounters Date Type Department Care Team Description 08/07/2024 5:19 PM CDT - 08/07/2024 6:35 PM CDT Emergency [facility] [address] [place] [address] Trista Quigley PA Vaginal itching (Primary Dx); Vaginal discharge Discharge Disposition: Home Self Care 08/07/2024 Travel 07/21/[address] [facility] [address] [place] [address] Tiara Baptiste MD Imaging 07/13/2024 1:32 PM CDT - 07/13/2024 4:27 PM CDT Emergency [facility] [address] [place] [address] Trista Quigley PA Vaginal bleeding in (HC) (Primary Dx); Abdominal cramping; Subchorionic hematoma in first trimester, single or unspecified fetus (HC) Discharge Disposition: Home Self Care 07/13/2024 Travel 07/13/2024 Nurse Triage [facility] Centralized Nurse Triage None Abdominal Pain 07/09/2024 12:04 PM CDT - 07/09/2024 11:59 PM CDT Hospital Encounter [facility] [address] [place] [address] Bleeding in early (HC) 07/09/[address] [facility] [address] [place] [address] Tiara Baptiste MD Results (LABS /) 07/09/2024 Travel 07/09/[address] [facility] [address] [place] [address] Tiara Baptiste MD Appointment 07/08/[address] [facility] [address] [place] [address] Tiara Baptiste MD Vaginal Problem () 07/06/2024 10:30 AM CDT Phone OB Encounter [facility] [address] [place] [address] Education (PRICILA 03/01/25/) 07/06/2024 Travel 07/01/2024 8:00 PM CDT - 07/02/2024 12:15 AM CDT Emergency [facility] [address] [place] [address] Abby Baker DO Fuechtmann, Kayla Renee, PA Shortness of breath (Primary Dx); , unspecified gestational age (HC); Abdominal pain, unspecified abdominal location; Constipation, unspecified constipation type Discharge Disposition: Home Self Care 07/01/2024 7:45 PM CDT Office Visit [facility] [address] [place] [address] Abdominal Pain 07/01/2024 Travel 06/11/2024 Patient Outreach [facility] Care Management - Care Management Navigation/[facility] [place] [address] Adina Gavin-Community Resource Navigation 06/09/2024 9:35 AM CDT Office Visit [facility] [address] [place] [address] Adamaris Gabriel NP Vaginal Discharge (Having discharge since yesterday and having itchiness and burning in the area ) 06/09/2024 Travel 06/09/2024 Nurse Triage [facility] Centralized Nurse Triage None Vaginal Problem from [...] enera l Livin g 9 9 BG JAME LATIF Kristi na Joy, MD Complications:Prolonged late nt phase Delivery Location:Hospital ( [facility] Current Summary Episode Dates Number of Fetuses Estimated Date of Delivery 07/06/2024 - Present (08/25/2024) 1 03/01/2025 (set by Jessica Bullard, RN on 07/06/2024 based on Alternate PRICILA Entry) Dating Summary Based On PRICILA GA Diff Last Menstrual Period on 04/07/2024 (Approximate ) 01/12/2025 +6w6d Alternate PRICILA Entry 03/01/2025 Working Overview and Plan :[place]roz[place] Delivery Plans Planned delivery method: Vitals Pregravid Weight Height TWG (As of 08/25/2024) Pregrav id BMI 1.6 m (5' 3) [...] (-1 ORAL) Take by mouth. vit A-vit Q-pgenhu-daff-copper (Yith-Abqz-Epna(vit A,C-biotin)) 2,500 unit-100 mg-2,500 mcg cap Take [...] provider. Was safe medication list sent through [employer] : does not currently have mychart set [...] Discussed resources available, nurses, OB MD, lacatation data quality consultant and Babystop class. Advised to check [...] Description 09/01/2024 7:30 AM CDT OB Encounter [facility] [address] [place] [address] Brigitte Andrew MD [address] [place] [address] Health Maintenance Due Date Last Done Comments Depression screening for age 12+ 07/25/2023 07/24/2022, 05/04/2021, 04/10/2021 COVID-19 vaccine series ( season) 2023 02/07/2021, 06/29/2020, 06/01/2020 Influenza Vaccine (#1) 2024 , 12/05/2020, 12/29/2019, Additional history exists RSV vaccine [...] the intention of not completing the topic Pneumococcal series for age 6-49 Aged Out [...] PER CRITERIA STAT 07/01/2024 8:12 PM CDT RESORT KEEPER THIN PREP PAP SCREEN IMAGED Routine 06/09/2024 [...] is included. ADRIANA SPECIES Positive(A) Negative 08/10/19 1:47 AM CDT [facility] ADRIANA GLABRATA Negative Negative 08/09/2024 1:47 AM CDT [facility] TRICHOMONAS VVA Negative Negative 1:47 AM CDT [facility] BACTERIAL VAGINOSIS Negative Negative 08/09/2024 1:47 AM CDT [facility] Other VAGINAL SWAB / Unknown Non-Blood / Unknown 08/07/2024 6:31 PM CDT 08/07/2024 6:41 PM CDT us Trista VARNER MICROBIOLOGY Final R esult [facility] [address] [place] [address], * GC CHLAMYDIA TRACH PROBE (08/07/2024 6:31 [...] us Trista VARNER MICROBIOLOGY Final R esult [facility]-CEN[facility]AL LABORATORY [address] [place] [address], [place] * US OB 1ST TRI SINGLE [...] COLOR Yellow Yellow Color 07/13/2024 3:24 PM T [facility] CLARITY Clear Clear Clarity 07/13/2024 3:24 PM T [facility] SPECIFIC GRAVITY,URINE 1.010 1.010, 1.015, 1.020, 1.025 07/13/2024 3:24 PM [facility] PH,URINE 6.0 6.0, 7.0, 8.0, 5.5, 6.5, 7.5, 8.5 07/13/2024 3:24 PM [facility] UROBILINOGEN, QUALITATIVE Normal Normal EU/dl 07/13/2024 3:24 PM [facility] PROTEIN, URINE Negative Negative mg/dL 07/13/2024 3:24 PM [facility] GLUCOSE, URINE Negative Negative mg/dL 07/13/2024 3:24 PM [facility] KETONES,URINE Negative Negative mg/dL 07/13/2024 3:24 PM [facility] BILIRUBIN,URI NE Negative Negative 07/13/2024 3:24 PM [facility] OCCULT BLOOD,URINE Negative Negative 07/13/2024 3:24 PM [facility] NITRITE Negative Negative 07/13/2024 3:24 PM [facility] LEUKOCYTE ESTERASE Negative Negative 07/13/2024 3:24 PM [facility] Urine URINE SPECIMEN / Unknown Non-Blood / Unknown 07/13/2024 3:05 PM CDT 07/13/2024 3:09 PM CDT us Trista Quigley PA URINE Final R esult [facility] [address] [place] [address] * (ABNORMAL) URINE (07/13/2024 3:05 PM CDT) Only the most recent of2 resultswithin the time period is included. Pathologist [facility] ,URIN E Positive(P ositive) Negative 07/13/2024 3:25 PM [facility] Comment:Is Rh typing necessa ry? Urine URINE SPECIMEN / Unknown Non-Blood / Unknown 07/13/2024 3:05 PM CDT 07/13/2024 3:09 PM CDT us Trista Quigley PA URINE Final R esult [facility] [address] [place] [address] * (ABNORMAL) CBC WITH AUTO DIFFERENTIAL (07/13/2024 2:41 PM CDT) [facility] WHITE BLOOD COUNT 10.7 4.5 - 11.0 thou/cu mm 07/13/2024 3:03 PM [facility] RED BLOOD COUNT 4.58 4.00 - 5.20 mil/cu mm 07/13/2024 3:03 PM [facility] HEMOGLOBIN 13.4 12.0 - 16.0 g/dL 07/13/2024 3:03 PM [facility] HEMATOCRIT 39.9 33.0 - 51.0 % 07/13/2024 3:03 PM [facility] MCV 87 80 - 100 fL 07/13/2024 3:03 PM [facility] MCH 29.3 26.0 - 34.0 pg 07/13/2024 3:03 PM [facility] MCHC 33.6 32.0 - 36.0 g/dL 07/13/2024 3:03 PM [facility] RDW 13.1 11.5 - 15.5 % 07/13/2024 3:03 PM [facility] PLATELET COUNT 300 140 - 440 thou/cu mm 07/13/2024 3:03 PM [facility] MPV 10.4 6.5 - 11.0 fL 07/13/2024 3:03 PM [facility] % NEUT 71.3 % 07/13/2024 3:03 PM T [facility] % LYMPH 21.0 % 07/13/2024 3:03 PM [facility] % MONO 6.4 % 07/13/2024 3:03 PM [facility] % EOS 1.1 % 07/13/2024 3:03 PM [facility] % BASO 0.2 % 07/13/2024 3:03 PM [facility] ABSOLUTE NEUTROPHILS 7.6(H) 1.7 - 7.0 thou/cu mm 07/13/2024 3:03 PM [facility] ABSOLUTE LYMPHOCYTES 2.3 0.9 - 2.9 thou/cu mm 07/13/2024 3:03 PM [facility] ABSOLUTE MONOCYTES 0.7 <0.9 thou/cu mm 07/13/2024 3:03 PM [facility] ABSOLUTE EOSINOPHILS 0.1 <0.5 thou/cu mm 07/13/2024 3:03 PM [facility] ABSOLUTE BASOPHILS 0.0 <0.3 thou/cu mm 07/13/2024 3:03 PM [facility] Blood BLOOD SPECIMEN / Unknown Venipuncture / Unknown 07/13/2024 2:41 PM CDT 07/13/2024 2:48 PM CDT us Trista Quigley PA HEMATOLOGY Final R esult [facility] [address] [place] [address] * EXTRA TUBE PEREIRA (07/13/2024 2:41 PM CDT) Blood BLOOD SPECIMEN / Unknown Extra Tube / Unknown 07/13/2024 2:41 PM CDT 07/13/2024 3:13 PM CDT us Doctor Unknown LABORATORY Final Result [facility] [address] [place] [address] * HCG BETA QUANT, (07/13/2024 2:41 PM CDT) Only the most recent of3 resultswithin the time period is included. HCG BETA QUANT,PREGNANC Y 42,474 mIU/mL 07/13/2024 3:41 PM CDT [facility] Blood BLOOD SPECIMEN / Unknown Venipuncture / Unknown 07/13/2024 2:41 PM CDT 07/13/2024 2:48 PM CDT [facility] LAB[facility] - 07/13/2024 3:41 PM CDT Expected [...] us Trista VARNER CHEMISTRY Final R esult [facility] [address] [place] [address] * (ABNORMAL) BASIC METABOLIC PANEL (07/13/2024 2:41 PM CDT) Only the most recent of2 resultswithin the time period is included. SODIUM 135(L) 136 - 145 mmol/L 07/13/2024 3:11 PM [facility] POTASSIUM 3.8 3.5 - 5.1 mmol/L 07/13/2024 3:11 PM [facility] CHLORIDE 101 98 - 107 mmol/L 07/13/2024 3:11 PM [facility] CO2,TOTAL 24 22 - 29 mmol/L 07/13/2024 3:11 PM [facility] ANION GAP 10 5 - 18 07/13/2024 3:11 PM [facility] GLUCOSE 74 70 - 99 mg/dL 07/13/2024 3:11 PM [facility] CALCIUM 8.8 8.8 - 10.4 mg/dL 07/13/2024 3:11 PM [facility] Comment: Reference ranges for this test were updated on 12/30/2023 to reflect our healthy population more accurately. Reference range changes are not retroactively applied to results, but previous results using the same methodology can be interpreted in the context of the new reference range. BUN 5(L) 6 - 20 mg/dL 07/13/2024 3:11 PM [facility] CREATININE 0.51 0.50 - 0.90 mg/dL 07/13/2024 3:11 PM [facility] BUN/CREAT RATIO 10 10 - 20 3:11 PM [facility] eGFR >90 >90 mL/min/1. 73m2 07/13/2024 3:11 PM [facility] Comment:As of 2021, eG FR [...] CHEMISTRY Final R esult Performing Organization Address [facility]/ZIP Co de Phone Number [facility] [address] [place] [address] * COVID-19 MOLECULAR (07/01/2024 8:44 PM CDT) [facility] COVID 19 [place] MOLECULAR Not detected Not detected 07/01/2024 9:12 PM CDT [facility] TESTING LABORATORY [facility] Laboratory 07/01/2024 9:12 PM CDT [facility] Comment:Specimen submitted t o [facility] Laboratory for testing. Other SPECIMEN FROM NASOPHARYNGEAL STRUCTURE / Unknown Non-Blood / Unknown 07/01/2024 8:44 PM CDT 07/01/2024 8:48 PM CDT Abby Falkutt DO MICROBIOLOGY Final Result Performing Organization Address [facility]/ZIP Co de Phone Number [facility] [address] [place] [address] * INFLUENZA A/B PCR (07/01/2024 8:44 PM CDT) [facility] INFLUENZA A PCR NOT Detected 07/01/2024 9:12 PM CDT [facility] INFLUENZA B PCR NOT Detected 07/01/2024 9:12 PM CDT [facility] Other SPECIMEN FROM NASOPHARYNGEAL STRUCTURE / Unknown Non-Blood / Unknown 07/01/2024 8:44 PM CDT 07/01/2024 8:48 PM CDT Abby Falkutt DO MICROBIOLOGY Final Result Performing Organization Address [facility] [[email or web address]] Co de Phone Number [facility] [address] [place] [address] * XR CHEST 2 VIEWS PA AND [...] @ 07/01/2024 21:02:50 (Electronically Signed) Abby Clarke Plutt DO GENERAL IMAGI NG Final Result * (ABNORMAL) CBC W PLT NO DIFF (07/01/2024 8:34 PM CDT) WHITE BLOOD COUNT 11.6(H) 4.5 - 11.0 thou/cu mm 07/01/2024 8:41 PM T [facility] RED BLOOD COUNT 4.27 4.00 - 5.20 mil/cu mm 07/01/2024 8:41 PM T [facility] HEMOGLOBIN 12.3 12.0 - 16.0 g/dL 07/01/2024 8:41 PM [facility] HEMATOCRIT 37.2 33.0 - 51.0 % 07/01/2024 8:41 PM [facility] MCV 87 80 - 100 fL 07/01/2024 8:41 PM [facility] MCH 28.8 26.0 - 34.0 pg 07/01/2024 8:41 PM [facility] MCHC 33.1 32.0 - 36.0 g/dL 07/01/2024 8:41 PM [facility] RDW 13.4 11.5 - 15.5 % 07/01/2024 8:41 PM [facility] PLATELET COUNT 297 140 - 440 thou/cu mm 07/01/2024 8:41 PM [facility] MPV 9.9 6.5 - 11.0 fL 07/01/2024 8:41 PM [facility] Blood BLOOD SPECIMEN / Unknown Venipuncture / Unknown 07/01/2024 8:34 PM CDT 07/01/2024 8:38 PM CDT us Abby Clarke Plutt DO HEMATOLOGY Final Result [facility] [address] [place] [address] * LIPASE (07/01/2024 8:34 PM CDT) LIPASE 19.9 13.0 - 60.0 IU/L 07/01/2024 9:02 PM T [facility] Blood BLOOD SPECIMEN / Unknown Venipuncture / Unknown 07/01/2024 8:34 PM CDT 07/01/2024 8:38 PM CDT Abby Clarke Plutt DO CHEMISTRY Final Result [facility] [address] [place] [address] * (ABNORMAL) HEPATIC FUNCTION PANEL (07/01/2024 8:34 PM CDT) Pathologist [facility] ALBUMIN 4.2 4.0 - 4.9 g/dL 07/01/2024 9:02 PM T [facility] PROTEIN,TOTAL 6.7 6.0 - 8.0 g/dL 07/01/2024 9:02 PM T [facility] BILIRUBIN,TOTAL 0.2 0.0 - 1.2 mg/dL 07/01/2024 9:02 PM [facility] BILIRUBIN,DIRECT 0.1 0.0 - 0.2 mg/dL 07/01/2024 9:02 PM [facility] BILIRUBIN,INDIRE CT 0.1(L) 0.2 - 0.8 mg/dL 07/01/2024 9:02 PM [facility] ALK PHOSPHATASE 73 35 - 104 IU/L 07/01/2024 9:02 PM [facility] ALT (SGPT) 16 10 - 35 IU/L 07/01/2024 9:02 PM T [facility] AST (SGOT) 18 10 - 35 IU/L 07/01/2024 9:02 PM [facility] Blood BLOOD SPECIMEN / Unknown Venipuncture / Unknown 07/01/2024 8:34 PM CDT 07/01/2024 8:38 PM CDT Abby Clarke Plutt DO CHEMISTRY Final Result [facility] [address] [place] [address] * RESORT KEEPER THIN PREP PAP SCREEN IMAGED (06/09/2024 1:18 PM CDT) Case Report Gynecologic Cytology Report Case: [id number] Authorizing Provider: Adamaris Gabriel NP Collected: 06/09/2024 1318 Ordering Location: [facility] Received: 06/09/2024 1318 Clinic First Screen: [place] Stahl Specimen: RESORT KEEPER ThinPrep Vial Screening, Cervical 06/25/2024 10:[address] [facility] INTERPRETATION/ RESULT NEGATIVE FOR INTRAEPITHELIAL LESION OR MALIGNANCY (NIL) (none) 06/25/2024 10:[address] [facility] [employer] [facility] ENTRAL LABORATORY at 1045 CDT ORGANISM(S) Fungal organisms morphologically consistent with Adriana species 06/25/2024 10:[address] [facility] [employer] [facility] ENTRAL LABORATORY SPECIMEN ADEQUACY Satisfactory for evaluation Endocervical component present 06/25/2024 10:[address] [facility] Date of LMP 06/01/2024 06/25/2024 10:[address] [facility] [employer] [employer] LABORAT[facility]-C ENTRAL LABORATORY Last Pap Date none 06/25/2024 10:45 AM CDT [facility] LABORATORY-C ENTRAL LABORATORY Last Pap Result First Pap/Unknown 10:45 AM CDT [facility] [employer] [facility] ENTRAL LABORATORY Abnormal Pap or [place] Bx in last 5 years No 06/25/2024 10:[address] [facility] [employer] [facility] ENTRAL LABORATORY Menstrual Status Regular Periods 06/25/2024 10:[address] [facility] [place] Bx Done Today No 06/25/2024 10:45 AM CDT [facility] [employer] [facility] ENTRAL LABORATORY Additional Information None given 06/25/2024 10:45 AM CDT [facility] [employer] [facility] ENTRAL LABORATORY Comment: [facility], Central Laboratory - [address], [place] [address] and [facility] Laboratory - [address], [place] [address] and [facility] - [address] [place] [address] Interpreted at [facility], Central Laboratory - [address], [place] [address] Automated Review Successful 06/25/2024 10:45 AM CDT [facility] Comment:Specimen processed s uccessfully by automated camera machinist device, ThinPrep Imaging System, [employer] Note The pap test is a [...] and malignant lesions. 06/25/2024 10:45 AM CDT [facility] Other (Cervical) Non-Blood / Unknown 06/09/2024 1:18 PM CDT 06/09/2024 1:18 PM CDT Adamaris Gabriel NP PATHOLOGY/CYTOLOGY Final Result [facility] [address] [place] [address], [place] * TSH (06/09/2024 11:23 AM CDT) TSH 1.20 mIU/L [facility] melissa Alfaro Comment: Reference Range > or = 20 Years 0.40-4.50 Ranges First trimester 0.26-2.66 Second trimester 0.55-2.73 Third trimester 0.43-2.91 Blood BLOOD SPECIMEN / Unknown 06/09/2024 11:23 AM CDT 06/09/2024 11:24 AM CDT Narrative [facility] - 06/10/2024 6:23 AM CDT FASTING:YES FASTING: YES us Adamaris Gabriel NP CHEMISTRY Final Result [employer] [address] [place] [address], [facility] [address] [place] [address] * PROLACTIN (06/09/2024 11:23 AM CDT) PROLACTIN 8.5 ng/mL [facility] Comment: Reference Range Females Non- 3.0-30.0 10.0-209.0 Postmenopausal 2.0-20.0 Blood BLOOD SPECIMEN / Unknown 06/09/2024 11:23 AM CDT 06/09/2024 11:24 AM CDT Narrative [facility] - 06/10/2024 6:23 AM CDT FASTING:YES FASTING: YES us Adamaris Gabriel ENVIRONMENTAL AID SEND OUTS Final Result Performing Organization Address [facility] [[email or web address]] Co de Phone Number [employer] [address] [facility] [place] [address], [place] [phone] [facility] [address] [place] [address] * FSH (06/09/2024 11:23 AM CDT) FSH 6.0 mIU/mL [facility] arikmelissa Alfaro Comment: Reference Range Follicular Phase 2.5-10.2 Mid-cycle Peak 3.1-17.7 Luteal Phase 1.5- 9.1 Postmenopausal 23.0-116.3 Blood BLOOD SPECIMEN / Unknown 06/09/2024 11:23 AM CDT 06/09/2024 11:24 AM CDT Narrative [facility] - 06/10/2024 6:23 AM CDT FASTING:YES FASTING: YES us Adamaris Gabriel NP CHEMISTRY Final Result [employer] [address] [place] [address], [place] [phone] [facility] [address] [facility] [address] from Last 3 Months Insurance MEDICAID [place] CARE Advance Directives * Full Code (Latest Code Status on File) Date Activated Date Inactivated Comments 04/02/2021 12:56 PM 04/06/2021 5:52 PM Question Answer Comments Code Status Discussion: Reviewed Preferences * Full Code Date Activated Date Inactivated Comments 04/02/2021 12:56 PM 04/02/2021 12:56 PM Question Answer Comments Code Status Discussion: Reviewed Preferences Care Teams Ferry Terminal Supervisor Relationship Specialty Start Date End Date None . PCP - General 06/08/23
== END 2024-08-24 13:39 | disposition home or self-care (01) ==
LOC: US 13:40
PROVIDERS: Visit Provider Physician Assistant
DX: Z34.91 Encounter for supervision of normal pregnancy, unspecified, first trimester (principal); Z3A.13 13 weeks gestation of pregnancy
CPT/HCPCS: 76801; 82565; 82570; 83021; 84156; 84450; 84460; 84520; 86592; 86703; 86704; 86706; 86762; 86787; 86803; 86850; 86900; 86901; 87086; 87340; 87491; 87591; T1013

== ENCOUNTER 2024-10-18 11:58 | Outpatient (CLI) | payer MEDICAID, SELFPAY ==
--- NOTE | 2024-10-18 12:15 | CRLHL7_ITS ---
For Patients: As a result of the 21st Century Cures Act, medical imaging exams and procedure reports are released immediately into your electronic medical record. You may view this report before your referring provider. If you have questions, please contact your health care provider. PRICILA by US: 03/03/2025. GA: 20w, 4d. Single. INDICATION: anatomy screen. CERVIX: Visualized. Measurement: 3.7 TA. POSITIONING: Vertex. AMNIOTIC FLUID: 4.1 cm SDP. PLACENTA: Technique: Transabdominal. PLACENTA POSITION: Anterior. Placenta tip to internal os: 10.0 cm. Placental insertion: Central. UMBILICAL CORD: 3-vessel cord. DOPPLER: heart rate: 154 bpm. BIOMETRY: BPD: 4.8 cm. 20w, 3d, 43.0 percent. HC: 17.6 cm. 20w, 1d, 21.4 percent. AC: 15.7 cm. 20w, 6d, 54.2 percent. FL: 3.1 cm. 19w, 5d, 16.3 percent. FL/AC: 19.9 percent. HC/AC Ratio: 1.1. EFW: 347.5 g. Weight: 0 lbs, 12 oz. age by this US: 20w, 4d. PRICILA by this US: 03/03/2025. Percentile by PRICILA: 32.6 percent. SURVEY: Observed Structures Cerebellum: Yes. 2.16 cm; 21w 5d. Cisterna Magna: Yes. 4.2 mm. Nuchal Fold: Yes. 5.8 mm. Lateral Ventricle: Yes. 7.7 mm. CSP: Yes. Midline Falx: Yes. Choroid Plexus: Yes. Spine: Yes. Stomach: Yes. Abd Cord Insertion: Yes. Urinary Bladder: Yes. Kidneys: Yes. Diaphragm: No. Nose/lips: Yes. Orbital view: Yes. Profile: No. Upper Extremities: Yes. Lower Extremities: Yes. Hands: Yes. Feet: Yes. Four-Chamber Heart: No. LVOT: Yes. RVOT: No. 3VV: Yes. 3VTV: No. IMPRESSION: 1. Concordance of clinical and sonographic dating. 2. Incomplete visualization of the profile, diaphragm and heart images due to position. Remainder of the anatomic survey is normal. Short-term follow-up recommended. Rod Gil M.D. Diagnostic Radiologist [email or web address] [email or web address] / bM/Dictated by: Rod Gil MD @ 10/18/2024 1:28:00 PM (Electronically Signed)
== END 2024-10-18 11:59 | disposition home or self-care (01) ==
LOC: US 11:58
PROVIDERS: Visit Provider Obstetrics & Gynecology
DX: Z34.92 Encounter for supervision of normal pregnancy, unspecified, second trimester (principal); Z3A.20 20 weeks gestation of pregnancy
CPT/HCPCS: 76805; T1013

== ENCOUNTER 2024-11-18 10:14 | Outpatient (CLI) | payer MEDICAID, SELFPAY ==
--- NOTE | 2024-11-18 10:15 | CRLHL7_ITS ---
For Patients: As a result of the Century Cures Act, medical imaging exams and procedure reports are released immediately into your electronic medical record. You may view this report before your referring provider. If you have questions, please contact your health care provider. OB ULTRASOUND PRICILA by LMP or US: 03/03/2025. GA: 25 w, 0 d. INDICATION: Follow-up anatomy. TECHNIQUE: Real time grayscale imaging of the fetus was performed. Evaluate anatomy. Transabdominal imaging performed. CERVIX: Not visualized. POSITIONING: Vertex. AMNIOTIC FLUID: 5.8 cm SDP (N: greater than 2 x 1 cm) PLACENTA: Technique: Transabdominal. PLACENTA POSITION: Anterior. DOPPLER: heart rate: 135 bpm. IMPRESSION: Normal diaphragm, profile, four-chamber heart, LVOT, RVOT, three-vessel trachea view, and three-vessel view. Rod Gil M.D. Diagnostic Radiologist [email or web address] SANDRA/timothy aguirre/Dictated by: Rod Gil MD @ 11/18/2024 1:12:00 PM (Electronically Signed)
== END 2024-11-18 10:15 | disposition home or self-care (01) ==
LOC: US 10:15
PROVIDERS: Visit Provider Obstetrics & Gynecology
DX: Z34.92 Encounter for supervision of normal pregnancy, unspecified, second trimester (principal); Z3A.25 25 weeks gestation of pregnancy
CPT/HCPCS: 76816; 87086; 87186; T1013

== ENCOUNTER 2024-12-09 08:20 | Outpatient (CLI) | payer MEDICAID, SELFPAY | END 2024-12-09 08:21 | disposition home or self-care (01) | LOC: NFLDREF 08:21 | PROVIDERS: Visit Provider Obstetrics & Gynecology | DX: Z34.93 Encounter for supervision of normal pregnancy, unspecified, third trimester (principal) | CPT/HCPCS: 86592; 87086 ==

== ENCOUNTER 2025-01-06 12:38 | Outpatient (CLI) | payer MEDICAID, SELFPAY ==
--- NOTE | 2025-01-06 13:00 | CRLHL7_ITS ---
For Patients: As a result of the Century Cures Act, medical imaging exams and procedure reports are released immediately into your electronic medical record. You may view this report before your referring provider. If you have questions, please contact your health care provider. INDICATION: E66.9 - Obesity, unspecified. (Sic) COMPARISON: 11/18/2024 TECHNIQUE: Grayscale pelvic ultrasound via a transabdominal approach. FINDINGS: number: 1 Position: Cephalic. Placental Position: Anterior. Amniotic fluid: DVP 5.8cm. heart rate: 152bpm. BPD: 7.9cm; 31 weeks and 5 days. Percentile:32% HC: 30.2cm; 33 weeks and 4 days. Percentile:55% AC: 29.7cm; 33 weeks and 5 days. Percentile:90% FL: 6.1cm; 31 weeks and 5 days. Percentile:31% US EGA: 32 weeks and 5. US PRICILA: 02/26/2025 Established PRICILA: 03/03/2025 EFW: 2083gm, +/-312gm, corresponding to the 70th percentile for the established PRICILA. Uterus: No significant uterine findings. Right ovary: Unseen. Left ovary: Unseen. IMPRESSION: measurements correspond to an EFW at the 70th percentile for the established PRICILA. Dictated by Gianni Romero MD @ 01/07/2025 10:41:26 AM (Electronically Signed)
== END 2025-01-06 12:39 | disposition home or self-care (01) ==
LOC: US 12:38
PROVIDERS: Visit Provider Obstetrics & Gynecology
DX: O99.213 Obesity complicating pregnancy, third trimester (principal); Z3A.32 32 weeks gestation of pregnancy
CPT/HCPCS: 76816

== ENCOUNTER 2025-02-10 09:00 | Outpatient (CLI) | payer MEDICAID, SELFPAY ==
--- NOTE | 2025-02-10 09:15 | CRLHL7_ITS ---
For Patients: As a result of the Cures Act, medical imaging exams and procedure reports are released immediately into your electronic medical record. You may view this report before your referring provider. If you have questions, please contact your health care provider. OB ULTRASOUND PRICILA by US: 03/03/2025. GA: 37 w, 0 d. Single. INDICATION: Obesity complicating . TECHNIQUE: Real time grayscale imaging of the fetus was performed. Transabdominal. CERVIX: Not visualized. POSITIONING: Vertex. AMNIOTIC FLUID: 4.6 cm. SDP (N: greater than 2 x 1 cm) BIOPHYSICAL PROFILE: 2: Gross body movements 2: tone 2: Respiratory activity 2: Amniotic fluid SDP (N: greater than 2 x 1 cm) 8/8: Total score PLACENTA: Technique: Transabdominal. PLACENTA POSITION: Anterior. DOPPLER: heart rate: 139 bpm. IMPRESSION: Normal biophysical profile score 8/8. Rod Gil M.D. Diagnostic Radiologist [email or web address] SANDRA/timothy aguirre/Dictated by: Rod Gil MD @ 02/10/2025 10:18:00 AM (Electronically Signed)
== END 2025-02-10 09:01 | disposition home or self-care (01) ==
LOC: US 09:00
PROVIDERS: Visit Provider Obstetrics & Gynecology
DX: O99.213 Obesity complicating pregnancy, third trimester (principal); E66.9 Obesity, unspecified; Z3A.37 37 weeks gestation of pregnancy
CPT/HCPCS: 76819

== ENCOUNTER 2025-02-14 13:23 | Outpatient (CLI) | payer MEDICAID, SELFPAY ==
[2025-02-14 13:31] VITALS: BP 111/64; PULSE 88; RESP 17; TEMP 36.9
--- NOTE | 2025-02-14 15:09 | PC.OBNST ---
NST Note NST Note Start: 02/14/25 13:27 Freq: ONCE Status: Active Protocol: Document 02/14/25 15:05 KST (Rec: 02/14/25 15:08 KST [id number]) NST Note 2 Para (# of births) 1 EDC 03/03/25 Gestational Age In 37 Weeks & 4 Days Weeks & Days Patient Presented Other with Complaint(s) of Other Complaints patient states she lost her mucous plug and wonders if she is in labor Reactive Yes Appropriate for Yes Gestational Age JOAQUÍN Ellison, RN Date 02/14/25 Reactive Yes Appropriate for Yes Gestational Age JOAQUÍN Thompson, RN Date 02/14/25 OB NST charge Yes Complete NST Note Yes via Write Note The provider's electronic signature indicates the NST is reactive/appropriate for gestational age. *Note to provider: If an addendum is required, open the patient's chart and click on the note under the Nurse/Allied Health tab.
== END 2025-02-14 14:30 | disposition home or self-care (01) ==
LOC: OB OUT 13:23 → OB 13:24
PROVIDERS: Visit Provider Obstetrics & Gynecology
DX: O47.1 False labor at or after 37 completed weeks of gestation (principal); Z3A.37 37 weeks gestation of pregnancy
CPT/HCPCS: 59025; G0463

== ENCOUNTER 2025-02-16 08:24 | Outpatient (CLI) | payer MEDICAID, SELFPAY ==
--- NOTE | 2025-02-16 08:00 | CRLHL7_ITS ---
For Patients: As a result of the Century Cures Act, medical imaging exams and procedure reports are released immediately into your electronic medical record. You may view this report before your referring provider. If you have questions, please contact your health care provider. OB ULTRASOUND BIOPHYSICAL PROFILE PRICILA by US: 03/03/2025. GA: 37 w, 6 d. Single. Comparison: 02/10.2024 images. INDICATION: Obesity. TECHNIQUE: Real time hunter scale imaging of the fetus was performed. Transabdominal imaging performed. CERVIX: Not visualized. POSITIONING: Vertex. AMNIOTIC FLUID: 4.0 cm. ROBBIN, SDP (N: greater than 2 x 1 cm) BIOPHYSICAL PROFILE: Gross body movements: 2. tone: 2. Respiratory activity: 2. Amniotic fluid: 2. Total score: 8/8. IMPRESSION: Normal biophysical profile 8/8. ROD BELLO M.D. Diagnostic Radiologist [email or web address] DW/Dictated by: Rod Bello MD @ 02/20/2025 1:10:00 PM (Electronically Signed)
== END 2025-02-16 08:25 | disposition home or self-care (01) ==
LOC: US 08:24
PROVIDERS: Visit Provider Obstetrics & Gynecology
DX: O14.13 Severe pre-eclampsia, third trimester (principal); O99.213 Obesity complicating pregnancy, third trimester; Z3A.37 37 weeks gestation of pregnancy
CPT/HCPCS: 76819

== ENCOUNTER 2025-02-16 13:27 | Inpatient (IN) | payer MEDICAID, SELFPAY ==
[2025-02-16] VITALS (34 sets, daily range): BP systolic 101–150; BP diastolic 65–96; PULSE 63–94; RESP 16–18; TEMP 36.3–36.9; O2SAT 93–100; BMI 36.4
[2025-02-16 10:35] LABS: Hematocrit* 35.9 % (33.0-51.0); Hemoglobin* 11.9 gm/dL (12.0-16.0); Mean Corpuscular HGB Conc 33 gm/dL (32-36); Mean Corpuscular Hemoglobin 27 pg (26-34); Mean Corpuscular Volume 82 fL (80-100); Red Blood Count* 4.38 m/uL (4.00-5.20); White Blood Count* 8.09 K/uL (4.50-11.00)
[2025-02-16 10:46] LABS: Slide Review Reflex No
[2025-02-16 10:51] LABS: Alanine Aminotransferase* 16 U/L (4-35); Aspartate Amino Transferase* 28 U/L (12-35); Blood Urea Nitrogen* 6 mg/dL (5-24); Creatinine* 0.5 mg/dL (0.5-1.5); Est. Creatinine Clearance* 124.62; Estimated Glomerular Filt Rate 134 ml/min
[2025-02-16] MEDS: ACETAMINOPHEN 500 MG TABLET 1000 MG PO (10:53)
[2025-02-16 11:03] LABS: Protein Creatinine Ratio Urine 0.10 (0-0.19)
[2025-02-16] MEDS: PROCHLORPERAZINE 10 MG TABLET PO (11:51)
[2025-02-16] MEDS: LACTATED RINGERS 1000 ML 1,000 ML 1200 ML IV ×2 (13:15→14:40)
--- NOTE | 2025-02-16 13:33 | P.OBHP_ITS ---
OB - H&P: HPI History of Present Illness Chief complaint: maternity Narrative: Angelica Huertas is a 24 year old female transferred from clinic for new blood pressure elevation. is complicated by history of preeclampsia with severe features, history of delivery, GBS positivity, obesity, undesired fertility. Patient reported a new headache x3 days and had mild range blood pressures in the clinic. She was transferred to the Center. Here, she has had persistent mild range blood pressure by 4 hours. She continues to endorse a bitemporal constant headache, rated as 5/10 in severity despite Tylenol and Compazine. Denies vision changes, but notes her eyes feel fatigued. No right upper quadrant pain. Denies regular/painful contractions, vaginal bleeding or leaking of fluid. Endorses active movement. NST has been entirely reactive/reassuring across extended monitoring in triage. Admission labs reveal hemoglobin of 11.9, platelets 261, creatinine 0.5, AST 28 and ALT of 16. UPCR of 0.1. Specific Issues/Plans Patient goes by Raine (Mon-say). Partner: [] . Iranian-speaking Daughter: Tila Baby: Girl! H&P: Ct on 02/10 # history of preeclampsia with severe features based on blood pressure criteria per patient, records requested Baseline pre E labs: All normal Aspirin 81 mg # history of . IOL at 40w. Was remote from delivery 24 hours into induction, elected for primary , double-layer closure, operative report is scanned # Unwanted fertility Desires Iranian TOLAC given to the patient to review on 10/18/24 Chance of successful : 51%. Declined TOLAC. Desires permanent sterilization. Federal consent form signed on January 06, 2025 Schedule form sent for repeat CD + bilateral salpingectomy - Moved to 02/23/25 at 38 6/7 weeks per [facility]. # GBS UTI at 25 weeks Treated with amoxicillin 875 mg BID X 1 week 11/20 Test of cure at 28 weeks Treat as positive GBS; no need to repeat testing at 36 weeks #obesity, BMI 35.6 Hemoglobin A1c 5.4% Growth at 32 weeks Weekly surveillance starting at 37 weeks surveillance filled out on 12/23 # Suspect hydradenitis/right axilla not healing/potential flap of granulation tissue /very tender. Referral to General surgery: 08/25: Complete Imagin. 10/18/24 FAS: Vtx, SDP 4.1cm. Anterior placenta without previa. 3-vessel cord. Sub-optimal visualization of: Diaphragm, profile, four-chamber heart and right ventricular outflow tract. Remainder of anatomic survey appeared normal. EFW: 348 g, 12 oz, 33%. 2. 11/18: Adequate assessment and normal diaphragm, profile, 4chamber heart, LVOT, RVOT, 3VT, 3VV. FHR 135bpm, MVP 5.8cm. 3. 01/06/25: EFW 70%tile, AC 89.8%tile. SDP 5.8 cm Vaccinations: COVID: 09/2024 Flu: 12/09/2024 Tdap: 12/23/2024 RSV: 01/06/2025 hgb: 01/19/25 32 week mental health:01/06 Last pap: 06/09/24 PFSH PFSH Surgical History History of ?Z98.891 - History of uterine scar from previous surgery (ICD-10) Social History Narrative: SOCIAL HISTORY: Occupation: []. Marital status: Significant other. Mormonism/cultural needs: no. Chemical or radiation exposure: no. Pre- tobacco use: no. Pre- alcohol use: Occasional Current tobacco use: no. Current alcohol use: no. Recreational drug use: no. Dietary restrictions: no. Blood transfusion acceptable in an emergency: yes. PSYCHOSOCIAL HISTORY: History of depression or currently depressed: no. Current or past physical, emotional, or sexual mistreatment: no. Problems that will make it hard to make it to appointments: no. What is your current living situation?: I presently have a place to live Problems where you live: no known problems In the past 12 months, utilities in danger of being shut off: no In past 12 months, lack of transportation kept you from medical appts, meetings, work, or getting things needed for daily living: no In the past 12 mos, have been you worried that your food would run out before you had money to buy more?: never true In the past 12 mos, the food you bought just didn't last and you didn't have money to buy more?: never true Smoking Status: Former smoker How often does anyone, including family, friends and others, physically hurt you : never How often does anyone, including family, friends and others, insult or talk down to you: never How often does anyone, including family, friends and others, threaten you with harm: never How often does anyone, including family, friends and others, scream or curse at you: never Meds Home Medications and Allergies Home Medications ?Medication ?Instructions ?Recorded ?Confirmed ?Type RVB-[id number]-XS-omega 3 fatty no.1 27 1 cap PO DAILY 08/2402/16/25 History mg-1 mg-300 mg capsule acetaminophen 500 mg tablet 1,000 mg PO QID PRN 02/16/25 History (Tylenol Extra Strength) ferrous gluconate 236 mg (27 mg 236 mg PO QMWF #30 tab s 12/23/24 02/16/25 Rx iron) tablet Allergies Allergy/AdvReac Type Severity Reaction Status Date / Time No Known Drug Allergies Allergy Verified 02/16/25 09:10 OB - H&P: Exam Physical Exam: Vital signs: Temp Pulse Resp BP Pulse Ox 98.4 F 73 16 122/81 98 02/16/25 10:14 02/16/25 13:29 02/16/25 10:14 02/16/25 13:29 02/16/25 09:54 Narrative: Vital signs reviewed. General: Alert and oriented, no acute distress Psych: Appropriate mood and affect Heart: Regular rate and rhythm, no rubs murmurs or gallops Lungs: Clear to posterior auscultation throughout. No wheezes, rales or crackles. Abdomen: Gravid. No right upper quadrant tenderness. NST: Reactive. Baseline of 135 beats per minute, moderate variability, several qualifying 15 x 15 accelerations seen, no decelerations [place]: No contractions OB - Results Labs Labs: Short CBC 02/16/25 Range/Units 10:17 WBC 8.09 (4.50-11.00) K/uL Hgb 11.9 L (12.0-16.0) gm/dL Hct 35.9 (33.0-51.0) % Plt Count 261 (140-440) K/uL BMP 12/24/25 10:17 BUN 6 Creatinine 0.5 Liver Function 02/16/25 Range/Units 10:17 AST 28 (12-35) U/L ALT 16 (4-35) U/L Assessment and Plan Assessment and plan (1) Preeclampsia, severe: Status: Acute (2) Obesity (BMI 35.0-39.9 without comorbidity): Status: Acute (3) GBS bacteriuria: Status: Acute (4) History of pre-eclampsia in prior , currently : Problem comment: Severe Status: Acute Plan Raine is a 24-year-old at 37 weeks 6 days gestational age admitted for new diagnosis of preeclampsia with severe features. is otherwise complicated by history of (planning repeat), obesity, undesired fertility, GBS positivity and a history of preeclampsia with severe features in her last . Patient meets criteria for hypertension given persistent mild range blood pressures by more than 4 hours, her severe feature is an unrelenting headache despite Tylenol and Compazine. Recommend we proceed with urgent unscheduled repeat delivery and bilateral salpingectomy in the setting of this diagnosis. Recommend magnesium sulfate for seizure prophylaxis, to be continued for 24 hours . Recommend q6h preeclampsia labs in the period x 24 hours. Diligent blood pressure monitoring ongoing, plan to treat any sustained severe range blood pressures if they were to arise with short-acting antihypertensive medications. Will monitor her blood pressure control after delivery, consider long-acting antihypertensives as needed. Patient previously signed her consent with myself in the clinic for repeat and bilateral salpingectomy. We again reviewed the procedure in detail including risks/benefits and alternatives. Patient verbally affirmed her desire to proceed, and again affirmed her desire to be permanently sterilized. She signed Federal consent for sterilization on 01/06/2025. In-person hub borer was present for all this counseling. Plan Ancef for surgical prophylaxis. BT O+, active type and screen on file.
[2025-02-16] MEDS: MAGNESIUM IV 4 GM/100 ML PIGGYBACK IVPB (13:38)
[2025-02-16] MEDS: MAGNESIUM Infusion 40 GM/1,000 ML IV.SOLN IVPB (14:17)
--- NOTE | 2025-02-16 15:45 | P.OBPRC_ITS ---
Procedure Time Seen by Provider: 15:45 Date of procedure: 02/16/25 Pre-op diagnosis: Preeclampsia with severe features, history of , undesired fertility, obesity Post-op diagnosis: same Procedure Done: Global Will [facility] bill your pro fee for this procedure?: Yes Blood Loss Measurement Type: QBL (340) Bakri Used: No IV fluids (mL): 1,900 Urine Output (mL): 300 Urine Output Comment: Yellow, clear Surgeon: Reg Fofana MD Anesthesia Type: Spinal Findings: Moderate adhesive disease of the rectus abdominis fascia and musculature Live-born female Unremarkable uterus, bilateral fallopian tubes and ovaries Procedure Name: Repeat delivery Bilateral salpingectomy Procedure Description: Angelica Huertas (Monse) is a 24yo at 37w6d GA admitted for unscheduled urgent repeat in the setting of preeclampsia with severe features. Patient was taken to the operating room with IV running. She received Ancef in preoperative prophylaxis. Spinal anesthesia was administered. Muñoz catheter was inserted. She was prepped and draped in the usual sterile fashion. Anesthesia was tested and found to be adequate. A low-transverse skin incision was made with a scalpel and carried through to the underlying layer of fascia with the scalpel. The subcutaneous fat was dissected off the underlying fascia with Bovie. The fascia was nicked in the midline with a scalpel, and this incision was extended laterally with scissors. The rectus fascia was grasped and elevated, where the muscles were dissected off the fascia using a combination of blunt and sharp dissection. The rectus muscles were in the midline. Peritoneum was identified and entered bluntly. Bovie was used to widen this opening laterally. Osman O retractor was inserted and tightened down, providing excellent visualization of the lower uterine segment. The bladder reflection was found to be well below the planned site for hysterotomy. Low-transverse uterine incision was made with a scalpel. Incision was widened bluntly. The infant's head was grasped through the hysterotomy and delivered with the help of fundal pressure. The remainder of the body delivered without incident. Cord was clamped and cut after 30 seconds. was handed off to attending nurses. details: - Liveborn female fetus at 1444 - weight 7lb 2 oz - APGARs were 8 and 8 at 1 and 5 minutes respectively. Baby did require a few minutes of CPAP, see documentation by Pediatrics provider for complete details. At completion of case, she was successfully weaned off CPAP and was resting on mom's chest. The placenta was delivered with gentle traction on the cord. The uterus was cleaned of all clots and debris with the dry lap pad. The hysterotomy was reapproximated with 0 Vicryl in a running, locked fashion. Second layer of the same suture was used in imbricating fashion to obtain hemostasis. Excellent hemostasis was noted. The adnexa were examined and noted to be normal in appearance. The cul-de-sac and gutters were cleansed with dampened laparotomy sponge, removing any further clots and debris. The right fallopian tube was identified and elevated with [place]. Patient affirmed verbally her desire to proceed with sterilization. The right fallopian tube was sequentially ligated and transected from the mesosalpinx using the Ligasure cautery device. We proceeded from the fimbriated end, lateral to medial, and the tube was amputated at the right uterine cornua. Specimen was removed from the field. The same procedure was completed on the left. Excellent hemostasis noted bilaterally. Both specimens were removed from the operative field and confirmed sent to pathology. The uterus was reintroduce the peritoneal cavity. The salpingectomy sites were inspected in both noted to be hemostatic. Hysterotomy was re-examined and noted to be hemostatic. The Osman O retractor was removed. The hysterotomy was examined once again and noted to be hemostatic. The rectus muscles were elevated, examined and made hemostatic with electrocautery as needed. The fascia was reapproximated with 0 Vicryl in a running fashion. Subcutaneous fat was irrigated and Bovie used on oozing vessels. The subcutaneous fat was reapproximated with 2 0 Vicryl suture. The skin was closed with a subcuticular stitch of 3-0 Monocryl. Surgical glue was applied above this. Patient tolerated procedure well was taken to recovery area in stable condition. Complications: None Pathology: specimen obtained, sent to pathology Surgery Debrief Performed: Yes Condition: stable Disposition: floor [place] total score - 1 minute: 8 total score - 5 minute: 8 total score - 10 minute: 9
[2025-02-16] MEDS: LACTATED RINGERS 1000 ML 1,000 ML 75 ML IV (15:50)
--- NOTE | 2025-02-16 16:18 | P.ANES_ITS ---
Anesthesia Charges Start Date/Time Anesthesia Start Date: 02/16/25 Anesthesia Start Time: 14:03 Stop Date/Time Anesthesia Stop Date: 02/16/25 Anesthesia Stop Time: 15:54 Coding CPT Codes CPT Codes: ANESTH CS DELIVERY - 67357 ([id number]) P2 - PATIENT W/MILD SYST DISEASE, QZ - LOCK PLATER SVC W/O INVESTIGATIONS MANAGER BY
--- NOTE | 2025-02-16 16:18 | W.ANESCHARGE ---
Anesthesia Charges Start Date/Time Anesthesia Start Date: 02/16/25 Anesthesia Start Time: 14:03 Stop Date/Time Anesthesia Stop Date: 02/16/25 Anesthesia Stop Time: 15:54 Coding CPT Codes CPT Codes: ANESTH CS DELIVERY - 98561 ([id number]) P2 - PATIENT W/MILD SYST DISEASE, QZ - PRINCIPAL JAVA SOFTWARE ENGINEER SVC W/O INDIAN TRADER BY
--- NOTE | 2025-02-16 16:20 | P.NB_ITS ---
Nerve Block Nerve Block Time Seen by Provider: 15:30 Date Seen: 02/16/25 Type of block requested by surgeon for post-operative analgesia: TAP Side: bilateral Time out performed: Yes Verification of patient name: Yes Verification of date of : Yes Site marking: site marked Name of person performing procedure: Shanda Divyatamir Continuous monitoring Was continuous monitoring of O2 sat, B/P, alarm security or surveillance monitor, recorded every 15 minutes?: Yes Procedure Checklist: sterile prep, needles and gloves Ultrasound guided. Images saved: Yes Medications given in 5ml increments after negative aspiration: Marcaine %: 0.25 mL: 30 and Exparel mL: 10 Patient tolerated procedure well: Yes Additional comments: Injected in 5 mL increments after negative aspiration Block Charges Block Charge (with Pro Fee): TAP Bilateral Use of Ultrasound Machine for Block: Yes- US Guidance/pain block
[2025-02-16 16:21] LABS: Hematocrit* 34.5 % (33.0-51.0); Hemoglobin* 11.3 gm/dL (12.0-16.0); Mean Corpuscular HGB Conc 33 gm/dL (32-36); Mean Corpuscular Hemoglobin 27 pg (26-34); Mean Corpuscular Volume 83 fL (80-100); Red Blood Count* 4.17 m/uL (4.00-5.20); White Blood Count* 9.17 K/uL (4.50-11.00)
[2025-02-16 16:28] LABS: Slide Review Reflex No
[2025-02-16 16:37] LABS: Alanine Aminotransferase* 14 U/L (4-35); Aspartate Amino Transferase* 24 U/L (12-35); Blood Urea Nitrogen* 5 mg/dL (5-24); Creatinine* 0.4 mg/dL (0.5-1.5); Est. Creatinine Clearance* 155.77; Estimated Glomerular Filt Rate 142 ml/min
[2025-02-16 22:09] LABS: Hematocrit* 33.5 % (33.0-51.0); Hemoglobin* 11.1 gm/dL (12.0-16.0); Mean Corpuscular HGB Conc 33 gm/dL (32-36); Mean Corpuscular Hemoglobin 27 pg (26-34); Mean Corpuscular Volume 82 fL (80-100); Red Blood Count* 4.11 m/uL (4.00-5.20); White Blood Count* 10.64 K/uL (4.50-11.00)
[2025-02-16 22:14] LABS: Slide Review Reflex No
[2025-02-16 22:29] LABS: Alanine Aminotransferase* 22 U/L (4-35); Aspartate Amino Transferase* 29 U/L (12-35); Blood Urea Nitrogen* 5 mg/dL (5-24); Creatinine* 0.5 mg/dL (0.5-1.5); Est. Creatinine Clearance* 124.62; Estimated Glomerular Filt Rate 134 ml/min
[2025-02-17] VITALS (11 sets, daily range): BP systolic 111–133; BP diastolic 63–92; PULSE 82–89; RESP 16–20; TEMP 36.3–37.2; O2SAT 92–99
[2025-02-17] MEDS: LACTATED RINGERS 1000 ML 1,000 ML 75 ML IV (04:19)
[2025-02-17 04:54] LABS: Hematocrit* 31.8 % (33.0-51.0); Hemoglobin* 10.2 gm/dL (12.0-16.0); Mean Corpuscular HGB Conc 32 gm/dL (32-36); Mean Corpuscular Hemoglobin 27 pg (26-34); Mean Corpuscular Volume 84 fL (80-100); Red Blood Count* 3.80 m/uL (4.00-5.20); White Blood Count* 8.52 K/uL (4.50-11.00)
[2025-02-17 05:11] LABS: Slide Review Reflex No
[2025-02-17 05:12] LABS: Alanine Aminotransferase* 16 U/L (4-35); Aspartate Amino Transferase* 30 U/L (12-35); Blood Urea Nitrogen* 5 mg/dL (5-24); Creatinine* 0.5 mg/dL (0.5-1.5); Est. Creatinine Clearance* 124.62; Estimated Glomerular Filt Rate 134 ml/min
[2025-02-17] MEDS: ACETAMINOPHEN 500 MG TABLET 1000 MG PO ×2 (06:03→19:57)
[2025-02-17] MEDS: MAGNESIUM Infusion 40 GM/1,000 ML IV.SOLN IVPB (08:01)
--- NOTE | 2025-02-17 09:49 | P.OBPN_ITS ---
OB - PN:Subj Subjective Time Seen by Provider: 09:49 Date Seen: 02/17/25 Narrative: Angelica Heurtas (Monse) is a 24yo at 37w6d GA admitted for unscheduled urgent repeat and bilateral salpingectomy in the setting of preeclampsia with severe features. was otherwise complicated by history of , undesired fertility, history of preeclampsia with severe features and obesity. Patient is seen on postop day 1. She has been maintained on magnesium sulfate for seizure prophylaxis, due to be discontinue this afternoon at 24 hours PP. Blood pressures have been primarily normal since surgery (single mild range blood pressure with a diastolic of 92) on no antihypertensive medications. Patient denies headache, vision changes or right upper quadrant pain. Serial preeclampsia labs have been ongoing, last set at 4:45 a.m. with hemoglobin of 10.2, platelets 230, creatinine 0.5, AST 30, ALT 16 and Mag level of 5.1. Patient notes her pain is overall well controlled. She is tolerating p.o. intake without nausea/vomiting. Voiding spontaneously, robust urine output with 800 mL in the last 8 hours. She has not yet passed gas, no bowel movement. Lochia is described as normal and decreasing with time. Ambulates without difficulty, no dizziness/lightheadedness, chest pain or dyspnea. Raine is attempting to breast feed but notes latch difficulty, supplementing with formula. No mood concerns. OB - PN: Obj Exam Physical Exam: Vital signs: Temp Pulse Resp BP Pulse Ox O2 Del Method 97.4 F L 84 16 114/73 97 Room Air 02/17/25 08:16 02/17/25 08:16 02/17/25 08:16 02/17/25 08:16 02/17/25 08:16 02/17/25 08:16 Narrative: General: Alert and oriented, no acute distress Psych: Appropriate mood and affect Heart: Regular rate and rhythm, no rubs murmurs or gallops Lungs: Clear to posterior auscultation throughout Abdomen: Soft, nondistended. Nontender to palpation the upper quadrant, mild tenderness to palpation bilateral lower quadrants, consistent with postoperative state. Fundus at 1 below umbilicus. No rebound or guarding. Incision is covered by dressing, clean/dry. Extremities: 1+ pitting edema. No calf erythema or tenderness. OB - PN: Obj Data Labs Labs: Laboratory Results - last 24 hr 02/16/25 02/16/25 02/16/25 10:17 10:26 16:15 WBC 8.09 9.17 RBC 4.38 4.17 Hgb 11.9 L 11.3 L Hct 35.9 34.5 MCV 82 83 MCH 27 27 MCHC 33 33 Plt Count 261 238 BUN 6 5 Creatinine 0.5 0.4 L Estimated Creat Clear 124.62 155.77 Estimated GFR 134 142 Magnesium 4.1 H* AST 28 24 ALT 16 14 Urine Creatinine 129.2 Protein/Creatinin Ratio 0.10 Urine Total Protein 13 Blood Type O Positive O Positive Antibody Screen NEGATIVE NEGATIVE 02/16/25 02/17/25 22:03 04:48 WBC 10.64 8.52 RBC 4.11 3.80 L Hgb 11.1 L 10.2 L Hct 33.5 31.8 L MCV 82 84 MCH 27 27 MCHC 33 32 Plt Count 245 230 BUN 5 5 Creatinine 0.5 0.5 Estimated Creat Clear 124.62 124.62 Estimated GFR 134 134 Magnesium 4.9 H* 5.1 H* AST 29 30 ALT 22 16 Urine Creatinine Protein/Creatinin Ratio Urine Total Protein Blood Type Antibody Screen OB - PN: A/P Delivery Assessment and Plan (1) Preeclampsia, severe: Status: Acute (2) Obesity (BMI 35.0-39.9 without comorbidity): Status: Acute (3) GBS bacteriuria: Status: Acute (4) History of pre-eclampsia in prior , currently : Problem details: Severe Status: Acute Plan Angelica Huertas (Monse) is a 24yo at 37w6d GA admitted for unscheduled urgent repeat and bilateral salpingectomy in the setting of preeclampsia with severe features. was otherwise complicated by h istory of , undesired fertility, history of preeclampsia with severe features and obesity. She is seen on POD1. Patient's surgery and postoperative course has been unremarkable to present. She is meeting appropriate postoperative milestones. Last hemoglobin was 10.2, plan to start oral iron. Pain is overall well controlled, meeting appropriate postoperative milestones, benign abdominal exam. With regard to her preeclampsia severe features, blood pressures have been almost entirely normotensive on no long and eating antihypertensive regimen. She did have 1 mild range pressure this morning, where if this is noted recurrent we we will start a long-acting antihypertensive regimen. Patient denies headache, vision changes or right upper quadrant pain. Serial preeclampsia labs have been within normal limits. Magnesium sulfate will be discontinued at 12:00 p.m. post delivery, just prior to 1500 this afternoon. Discussed utilizing nursing support for assistance with latching. Encouraged her to continue combination feeding. She may also benefit from a consult tomorrow. Disposition: Inpatient until likely POD3 Patient was seen with an in-person healthcare interpreter.
[2025-02-17] MEDS: DOCUSATE SODIUM 100 MG CAPSULE PO (09:54)
[2025-02-17 10:57] LABS: Hematocrit* 31.0 % (33.0-51.0); Hemoglobin* 10.0 gm/dL (12.0-16.0); Mean Corpuscular HGB Conc 32 gm/dL (32-36); Mean Corpuscular Hemoglobin 27 pg (26-34); Mean Corpuscular Volume 84 fL (80-100); Red Blood Count* 3.69 m/uL (4.00-5.20); White Blood Count* 8.09 K/uL (4.50-11.00)
[2025-02-17 10:58] LABS: Slide Review Reflex No
[2025-02-17 11:22] LABS: Alanine Aminotransferase* 15 U/L (4-35); Aspartate Amino Transferase* 29 U/L (12-35); Blood Urea Nitrogen* 3 mg/dL (5-24); Creatinine* 0.5 mg/dL (0.5-1.5); Est. Creatinine Clearance* 124.62; Estimated Glomerular Filt Rate 134 ml/min
[2025-02-17] MEDS: FERROUS SULFATE 325 MG TABLET PO (16:26)
[2025-02-18] MEDS: ACETAMINOPHEN 500 MG TABLET 1000 MG PO ×2 (04:59→11:34)
[2025-02-18] MEDS: IBUPROFEN 600 MG TABLET PO ×2 (05:00→11:34)
[2025-02-18 05:01] VITALS: BP 138/86; PULSE 89; RESP 18; TEMP 36.8; O2SAT 98
[2025-02-18 07:37] VITALS: BP 114/72; PULSE 85; RESP 18; TEMP 37; O2SAT 97
[2025-02-18] MEDS: DOCUSATE SODIUM 100 MG CAPSULE PO (08:04)
[2025-02-18 11:25] VITALS: BP 125/81; PULSE 85; RESP 18; TEMP 36.8; O2SAT 98
--- NOTE | 2025-02-18 15:34 | P.DS_ITS ---
DS: Providers Provider Date Seen: 02/18/25 Date of admission: 02/16/25 13:27 Primary care physician: Not a Local Provider Admitting Clinician: Pat Fofana MD Attending Physician on discharge: Pat Fofana MD Date of Discharge: 02/18/25 DS: Diagnosis Discharge Diagnosis (1) Preeclampsia, severe: Status: Acute (2) Status post delivery: Status: Acute Exam Narrative: Exam Narrative: Physical exam: General: No acute distress Psych: Alert and oriented x4, full affect HEENT: Normocephalic, atraumatic Neck: No cervical adenopathy, no thyromegaly Heart: Regular rate and rhythm, no murmur rub or gallop Lungs: Clear to auscultation bilaterally Abdomen: Normoactive bowel sounds, soft, no tenderness, rebound, or guarding, no masses, no hepatosplenomegaly, no hernias Incision(s): Appropriately tender to palpation. Clean, dry, and intact. No erythema, induration, or abnormal discharge/breakdown Skin: No lesions or rashes Lower extremities: Trace bilateral lower extremity edema Pelvic exam: Scant bleeding on pad Const: Vital Signs, click to edit/add: Vital Signs - 24 hr 02/17/25 18:07 02/17/25 19:58 02/17/25 23:46 Temperature 98.9 F 98.6 F 98.4 F Pulse Rate [Pulse Oximeter] 86 86 82 Respiratory Rate 20 18 16 Blood Pressure [Ri ght Arm] 125/80 130/87 122/73 Pulse Oximetry 97 97 99 Oxygen Delivery Me thod Room Air Room Air Room Air 02/18/25 05:01 02/18/25 07:37 02/18/25 11:25 Temperature 98.3 F 98.6 F 98.3 F Pulse Rate [Pulse Oximeter] 89 85 85 Respiratory Rate 18 18 18 Blood Pressure [Ri ght Arm] 138/86 114/72 125/81 Pulse Oximetry 98 97 98 Oxygen Delivery Me thod Room Air Room Air Room Air OB - DS: Summary Hospital Course Hospital Course: The patient is a 24 year old at 37.6 weeks gestation that was admitted to the Center on 02/16/25 for pre-eclampsia with severe features. She had an uncomplicated repeat delivery and bilateral salpingectomy. She delivered a viable female . She is and formula feeding. the patient has done well. She is s/p 24 hours of magnesium sulfate for seizure prophylaxis. Blood pressure overnight all within normal limits. No indication to start p.o. antihypertensive currently. Denies any persistent headache, vision changes, SOB, right upper quadrant/epigastric pain, or rapidly expanding edema. Her pain is well controlled on oral pain medications. She is tolerating a regular diet. She has passed flatus. She is ambulating without difficulty. Lochia is scant. She is urinating without collado. Peripartum Data Procedures: Procedures Operation Date: 02/16/25 14:00 Actual Procedure Side Surgeon p Repeat Section with bilateral salpingectomy Pat Fofana MD [facility] Gender: Female Time Spent with Patient Time attestation: Total time spent providing and/or coordinating discharge services: Discharge Plan Discharge Disposition: Home, Self-Care Date of Admission: 02/16/25 13:27 Attending Provider on Discharge: Goldie Zaman Primary Care Provider: Provider,Not a Local Condition: Stable Anticipated Discharge Date/Time: 02/18/25 14:12 Discharge Medications: New ferrous sulfate 325 mg (65 mg iron) Tablet 325 mg PO Q48H 30 Days Qty: 15 0RF docusate sodium 100 mg Capsule 100 mg PO DAILY 30 Days Qty: 30 0RF ibuprofen 600 mg Tablet 600 mg PO Q6H PRN (Reason: Pain) 30 Days Qty: 60 0RF Lanolin (HPA) 100 % Cream 1 applic topical Q1H PRNQty: 21 0RF oxycodone 5 mg Tablet 5 mg PO Q4H PRN (Reason: Pain) 14 Days Qty: 15 0RF Continued acetaminophen [Tylenol Extra Strength] 500 mg tablet 1,000 mg PO QID PRN [id number] 3 fatty no.1 27-1-300 mg capsule 1 cap PO DAILY Discontinued ferrous gluconate 236 mg (27 mg iron) tablet 236 mg PO QMWF Qty: 30 0RF Discharge Orders: Discharge Order (Routine); Ordered 02/18/25 Ordered By: Goldie Zaman Consulting provider completed their portion of the discharge: Yes Patient Education: Bupivacaine Liposome (By injection), OB High Blood Pressure DC, OB /Bottle Feeding, OB /Breast Feeding Follow Up Appointments: Provider,Not a Local [Primary Care Provider, Family Practice] Forms: MyHealth Info Instructions Discharge Comments: Discharge Planning - Follow up in 5 days for incision check and BP check in clinic - Follow Up: follow-up at 2 weeks and 6 weeks in clinic
== END 2025-02-18 14:29 | disposition home or self-care (01) | DRG 540 ==
LOC: OB OUT 13:27 → OB 13:27
PROVIDERS: Obstetrics & Gynecology; Admitting Provider Obstetrics & Gynecology; Visit Provider Obstetrics & Gynecology
PROC: 10D00Z1 Extraction of Products of Conception, Low, Open Approach (ICD-10-PCS; CPT 59514; principal; 2025-02-16 14:00)
DX: O14.14 Severe pre-eclampsia complicating childbirth (principal); O34.211 Maternal care for low transverse scar from previous cesarean delivery; O99.824 Streptococcus B carrier state complicating childbirth; G89.18 Other acute postprocedural pain; O99.214 Obesity complicating childbirth; E66.9 Obesity, unspecified; Z3A.37 37 weeks gestation of pregnancy; Z37.0 Single live birth; Z30.2 Encounter for sterilization
CPT/HCPCS: 01961; 36415; 64488; 76942; 82565; 82570; 83735; 84156; 84450; 84460; 84520; 85018; 85027; 86780; 86850; 86900; 86901; A4314; A9270; J0665; J0666; J0690; J1885; J2371; J2405; J2590; J3010; J3475; J7120